=== PATIENT | male | born 1955 | race Caucasian/White ===

== ENCOUNTER 2018-12-04 10:26 | Observation (INO) | payer OTHER, SELFPAY ==
[2018-11-27 10:04] VITALS: BMI 25.7
[2018-12-04] VITALS (10 sets, daily range): BP systolic 144–164; BP diastolic 72–98; PULSE 39–59; RESP 12–16; TEMP 35.5–37.3; O2SAT 97–99; BMI 25.2; BMI 25.5
--- NOTE | 2018-12-04 10:40 | EKG12_ITS ---
Test Reason : WEAKNESS Blood Pressure : / mmHG Vent. Rate : 045 BPM Atrial Rate : 045 BPM P-R Int : 176 ms QRS Dur : 102 ms QT Int : 474 ms P-R-T Axes : -04 010 -08 degrees QTc Int : 410 ms Sinus bradycardia Septal infarct , age undetermined Abnormal ECG Confirmed by CORBY BARAHONA ([id number]), mapping editor ELLIOT YUEN ([id number]) on 12/07/2018 4:45:37 PM Referred By: GRACIELA Confirmed By:CORBY BARAHONA
--- NOTE | 2018-12-04 10:40 | CT_ITS ---
STUDY: CT BRAIN WITHOUT CONTRAST REASON FOR EXAM: Male, 63 years old. Headaches and dizziness. Weakness. RADIATION DOSAGE (If Supplied By Facility): CTDIvol = ( 44.99 ) mGy, DLP = ( 779.24 ) mGycm TECHNIQUE: Transaxial CT imaging of the brain was performed without administration of intravenous contrast material. Individualized dose optimization techniques were used for this CT. COMPARISON: Comparison is made with prior study dated April 16, 2012. FINDINGS: Normal soft tissue structures. Normal calvarium. Normal size ventricles and extra-axial spaces for the patient's age. Normal white matter tracts of the cerebral hemispheres. Normal basal ganglia and thalami. Normal brainstem. Normal cerebellum. There is no intracranial hemorrhage. There are no findings of an acute ischemic infarction. Normal visualized paranasal sinuses. CT/Brain/Head without Contrast IMPRESSION: Normal unenhanced CT scan of the brain. Electronically Signed: Vel Valenzuela, at 11:23 EDT , Service support ,
--- NOTE | 2018-12-04 10:40 | RAD_ITS ---
STUDY: X-RAY CHEST REASON FOR EXAM: Male, 63 years old. Chest pain and weakness. TECHNIQUE: Single AP portable view of the chest. COMPARISON: None. FINDINGS: EKG electrodes are seen. The lungs are clear and expanded. There is no demonstrated pleural abnormality. Normal size heart. Normal mediastinum and deo. Normal visualized pulmonary arteries. Normal visualized aortic arch and descending thoracic aorta. Normal visualized thoracic spine. Normal visualized ribs, clavicles, and shoulders. There is no demonstrated abnormality of the visualized soft tissue structures of the upper abdomen. RAD/Chest 1 View (Portable) IMPRESSION: Normal x-ray examination of the chest. Electronically Signed: Vel Valenzuela, at 11:13 EDT , Service support ,
[2018-12-04] MEDS: 0.9% Normal Saline 1,000 ML 1000 ML IV (10:59)
[2018-12-04] MEDS: proMETHazine 25 MG/ML Syringe 6.25 MG IV (10:59)
[2018-12-04 11:04] LABS: Absolute Lymphocyte Count 1.83 X10^3/ul (0.83-4.51); Absolute Neutrophil Count 5.9 X10^3/uL (2.0-7.7); Basophil# 0.03 X10^3/uL; Basophil% 0.4 % (0-1); Eosinophil# 0.13 X10^3/uL; Eosinophils% 1.5 % (0-5); Hemoglobin 16.1 g/dl (13.0-16.5); Lymphocyte # 1.83 X10^3/ul (4.0); Lymphocyte % 21.5 % (19-41); Mean Corp Hgb Conc 34.3 g/gl (32-36); Mean Corpuscular Volume 90.6 fL (80-94); Mean Platelet Vol. 10.3 fl (6.2-12.0); Monocyte# 0.54 X10^3/uL; Monocyte% 6.4 % (0-10); Neutrophil # 5.94 X10^3/uL (2.7-7.7); Neutrophil % 69.8 % (47-70); Platelet Count 201 K/mm3 (150-450); RBC Distribution Width CV 13.1 % (11.6-14.6); RBC Distribution Width SD 43.4 fl (35.1-43.9); Red Blood Count 5.19 M/mm3 (4.6-6.2); White Blood Count 8.5 K/mm3 (4.4-11.0)
[2018-12-04 11:05] LABS: POSITIVE COUNT NO; POSITIVE DIFFERENTIAL NO; POSITIVE MORPHOLOGY NO
[2018-12-04 11:18] LABS: Anion Gap 6 (5-15); BUN 29 mg/dL (7-18); BUN/Creat Ratio 30.2 RATIO (10-20); Calcium,Total 8.9 mg/dL (8.5-10.1); Chloride 106 mmol/L (98-107); Creatinine, Serum 0.96 mg/dL (0.70-1.30); EST Glomerular Filtration Rate 84 mL/min (>60); Est Glom Filt Rate - Afr Amer 101 mL/min (>60); Estimated Creatinine Clearance 71.07 ml/min; Glucose 141 mg/dL (74-106); Potassium 3.9 mmol/L (3.5-5.1); Sodium Level 142 mmol/L (136-145)
--- NOTE | 2018-12-04 11:50 | ED.VIS.GEN ---
History of Present Illness Chief Complaint: Fatigue Informant: Patient, Family Onset: Today Context: Sudden Onset Timing: Waxes and wanes Narrative: 63-year-old male with no past medical history, on no medications, presents with fairly sudden onset lightheadedness, nausea, and vomiting. He was in the shower and felt very lightheaded, vomited, and had difficulty standing up. He had to hold onto the wall because he felt like he was going to pass out but also had a slight amount of vertiginous type symptoms. This has happened to him multiple times in the past and he states that at one point he was hospitalized for 5 days. For diagnostic workup but no conclusive cause was discovered. He denies any cardiac history. He does not take any supplements or medications of any type. He is fairly active and has never had limitation of physical activity. He has no associated chest pain but did have slight diaphoresis. No associated shortness of breath. . Past Medical History - Allergies and Home Meds Allergies/Adverse Reactions: Allergies No Known Allergies Allergy (Verified 12/04/18 10:26) Primary Care Physician: Willy Bravo MD [Primary Care Provider] - Prior records reviewed: Yes Past Medical History: None Surgical History: no surgical history Smoking Status: Never smoker Review of Systems All systems negative except as indicated General: Reports: Sweats. Denies: Chills, Fever Eyes: Denies: Visual changes - bilaterally, Diplopia ENT: Denies: Rhinorrhea, Sore throat Cardiovascular: Reports: - - lighthdeaded. Denies: Chest pain, Palpitations Respiratory: Denies: Dyspnea, Cough, Dyspnea on exertion Gastrointestinal: Reports: Nausea, Vomiting. Denies: Abdominal pain, Diarrhea, Melena, Hematochezia Genitourinary: Denies: Dysuria, Hematuria, Frequency Musculoskeletal: Denies: Back pain, Extremity Pain Skin: Denies: Rash, Wounds Neurological: Reports: Headache. Denies: Weakness, Numbness Psych: Denies: Depression, Anxiety Hematologic: Denies: Easy bruising, Easy bleeding Physical Exam Vital Signs/Narrative: Vital Signs Temp Pulse Resp BP Pulse Ox 12/04/18 11:38 39 L 13 148/75 H 97 12/04/18 11:00 44 L 14 144/76 H 12/04/18 10:27 96 F L 53 L 14 149/98 H 98 General: Well nourished, Well developed, Acute Distress Head: Normocephalic, Atraumatic Eyes: Perrl, EOMI ENT: Moist mucous membranes, No rhinorrhea Neck: Supple, Nontender Cardiovascular: Regular rate, Regular rhythm, No murmurs Respiratory: No distress, CTA bilaterally, Chest nontender Abdomen: Soft, Nontender, Nondistended, Normal bowel sounds Back: Nontender, Normal Inspection Extremities: Nontender, No edema Skin: Normal color, No rash Neurological: Alert, Oriented x3, Cranial nerves II-XII grossly intact, Normal Strength, Normal Sensation Psychological: Normal affect, Normal Mood Diagnostic/Tx/Re-eval - Medical Decision Making He has no horizontal nystagmus. His symptoms are not reproducible with movement. Chest x-ray and CT brain are both negative. He was given IV fluids and Phenergan with minimal improvement. His symptoms are waxing and waning. He was placed on a cardiac monitor technician and his heart rate was noted to be in the mid 30s on several occasions, appearing to be sinus bradycardia. He was consistently staying in the mid 40s and he became more symptomatic when he dipped down into the 30s. To his knowledge, this has not occurred before. He requested consultation with Dr. Fang. I have paged him to discuss the case. The plan will be hospitalization to PCU. EKG interpretation-sinus bradycardia, rate 45, no QRS widening, no ST elevation, T wave inversion in lead III. Rhythm strip interpretation-sinus bradycardia 35. - Critical Care Time Critical care time (excluding procedures): 30-74 minutes, Discussing w/Patient &/or Family/Rehab Nursing Tech, Discussing w/Consultants, Arranging Admission or Transfer, Performing Direct Patient Care at Bedside ED Disposition - Plan for ED Patient: Disposition: Acute Care Hospital [facility] Diagnosis: Sinus bradycardia, Symptomatic bradycardia Referrals: Willy Bravo MD [Primary Care Provider] -
--- NOTE | 2018-12-04 11:56 | ED.DCSUM_ITS ---
History of Present Illness Chief Complaint: Fatigue Informant: Patient, Family Onset: Today Context: Sudden Onset Timing: Waxes and wanes Narrative: 63-year-old male with no past medical history, on no medications, presents with fairly sudden onset lightheadedness, nausea, and vomiting. He was in the shower and felt very lightheaded, vomited, and had difficulty standing up. He had to hold onto the wall because he felt like he was going to pass out but also had a slight amount of vertiginous type symptoms. This has happened to him multiple times in the past and he states that at one point he was hospitalized for 5 days. For diagnostic workup but no conclusive cause was discovered. He denies any cardiac history. He does not take any supplements or medications of any type. He is fairly active and has never had limitation of physical activity. He has no associated chest pain but did have slight diaphoresis. No associated shortness of breath. . Past Medical History - Allergies and Home Meds Allergies/Adverse Reactions: Allergies No Known Allergies Allergy (Verified 12/04/18 10:26) Primary Care Physician: Willy Bravo MD [Primary Care Provider] - Prior records reviewed: Yes Past Medical History: None Surgical History: no surgical history Smoking Status: Never smoker Review of Systems All systems negative except as indicated General: Reports: Sweats. Denies: Chills, Fever Eyes: Denies: Visual changes - bilaterally, Diplopia ENT: Denies: Rhinorrhea, Sore throat Cardiovascular: Reports: - - lighthdeaded. Denies: Chest pain, Palpitations Respiratory: Denies: Dyspnea, Cough, Dyspnea on exertion Gastrointestinal: Reports: Nausea, Vomiting. Denies: Abdominal pain, Diarrhea, Melena, Hematochezia Genitourinary: Denies: Dysuria, Hematuria, Frequency Musculoskeletal: Denies: Back pain, Extremity Pain Skin: Denies: Rash, Wounds Neurological: Reports: Headache. Denies: Weakness, Numbness Psych: Denies: Depression, Anxiety Hematologic: Denies: Easy bruising, Easy bleeding Physical Exam Vital Signs/Narrative: Vital Signs Temp Pulse Resp BP Pulse Ox 12/04/18 11:38 39 L 13 148/75 H 97 12/04/18 11:00 44 L 14 144/76 H 12/04/18 10:27 96 F L 53 L 14 149/98 H 98 General: Well nourished, Well developed, Acute Distress Head: Normocephalic, Atraumatic Eyes: Perrl, EOMI ENT: Moist mucous membranes, No rhinorrhea Neck: Supple, Nontender Cardiovascular: Regular rate, Regular rhythm, No murmurs Respiratory: No distress, CTA bilaterally, Chest nontender Abdomen: Soft, Nontender, Nondistended, Normal bowel sounds Back: Nontender, Normal Inspection Extremities: Nontender, No edema Skin: Normal color, No rash Neurological: Alert, Oriented x3, Cranial nerves II-XII grossly intact, Normal Strength, Normal Sensation Psychological: Normal affect, Normal Mood Diagnostic/Tx/Re-eval - Medical Decision Making He has no horizontal nystagmus. His symptoms are not reproducible with movement. Chest x-ray and CT brain are both negative. He was given IV fluids and Phenergan with minimal improvement. His symptoms are waxing and waning. He was placed on a field radio operator and his heart rate was noted to be in the mid 30s on several occasions, appearing to be sinus bradycardia. He was consistently staying in the mid 40s and he became more symptomatic when he dipped down into the 30s. To his knowledge, this has not occurred before. He requested consultation with Dr. Fang. I have paged him to discuss the case. The plan will be hospitalization to PCU. EKG interpretation-sinus bradycardia, rate 45, no QRS widening, no ST elevation, T wave inversion in lead III. Rhythm strip interpretation-sinus bradycardia 35. - Critical Care Time Critical care time (excluding procedures): 30-74 minutes, Discussing w/Patient &/or Family/Call Center Receptionist, Discussing w/Consultants, Arranging Admission or Transfer, Performing Direct Patient Care at Bedside ED Disposition - Plan for ED Patient: Disposition: Acute Care Hospital [facility] Diagnosis: Sinus bradycardia, Symptomatic bradycardia Referrals: Willy Bravo MD [Primary Care Provider] -
--- NOTE | 2018-12-04 13:31 | MRI_ITS ---
STUDY: MRI BRAIN WITHOUT CONTRAST REASON FOR EXAM: Male, 63 years old. Dizziness and weakness today TECHNIQUE: Standardized multiplanar fat and water weighted pulse sequences were obtained. COMPARISON: CT brain December 04, 2018 and MR brain April 16, 2012 FINDINGS: There is mild cerebral atrophy with widening of the extra-axial spaces and ventricular dilatation. There are a limited number of small white matter hyperintensities, distributed throughout the deep white matter tracts of the cerebral hemispheres, consistent with mild chronic white matter ischemic changes. There is no evidence for recent intracranial ischemia or other cause of cytotoxic edema on diffusion weighted imaging (DWI). Normal bilateral basal ganglia. Normal thalami. There is no extra-axial fluid accumulation. Normal flow voids within the major intracranial circulation suggesting patency by spin echo criteria. Normal sella turcica, pituitary gland, infundibular stalk, optic chiasm and hypothalamus. Normal tectal plate and pineal gland. Normal midbrain, mignon and medulla. Normal cerebellum. Normal basal cisterns. Normal bilateral temporal bones. Normal bilateral internal auditory canals. No demonstrated orbital abnormality, within the constraints of a routine brain study. Normal visualized paranasal sinuses. Normal calvarium and skull base. Normal visualized soft tissue structures. Normal visualized upper cervical spine. MRI/Brain without Contrast IMPRESSION: Normal unenhanced MRI of the brain. Electronically Signed: Hamilton Bunn MD at 23:59 EDT , Service support ,
--- NOTE | 2018-12-04 13:31 | MRI_ITS ---
STUDY: MRA NECK WITH AND WITHOUT CONTRAST REASON FOR EXAM: Male, 63 years old. Vertigo TECHNIQUE: 3-D hyph-rn-wlhvnh (TOF) imaging was performed in an 1.5 T MRI scanner. 15 IV Dotarem was administered for the contrast enhanced images. COMPARISON: None. FINDINGS: RIGHT CAROTID ARTERIES: Normal right common carotid artery (CCA). Normal right common carotid bulb. Normal origin of the right internal carotid (ICA) artery without a hemodynamically significant stenosis. Normal visualized cervical portion of the right internal carotid artery. Normal origin of the right external carotid artery (ECA). LEFT CAROTID ARTERIES: Normal left common carotid artery (CCA). Normal left common carotid bulb. Normal origin of the left internal carotid (ICA) artery without a hemodynamically significant stenosis. Normal visualized cervical portion of the left internal carotid artery. Normal origin of the left external carotid artery (ECA). VERTEBRAL ARTERIES: Normal antegrade flow within the bilateral vertebral artery without a hemodynamically significant stenosis. MRI/MRA Neck WITH and W/O Contrast IMPRESSION: Normal bilateral cervical carotid and vertebral arteries. Electronically Signed: Rudy Viera, at 8:08 EDT Tel , Service support ,
--- NOTE | 2018-12-04 13:31 | ECHOD_ITS ---
Version 2 Reason For Study: Bradycardia Procedure This was a 2D Doppler, Color Flow transthoracic echocardiogram. The exam was of adequate technical quality. Exam performed portable in patient room. Left Ventricle Normal LV size. Left ventricular systolic function is normal. The estimated ejection fraction is 65 %. No evidence for diastolic dysfunction. No regional wall motion abnormalities noted. Right Ventricle Normal RV size. Normal systolic function. Atria Normal left atrium. Normal right atrium. No doppler evidence for ASD. Mitral Valve There is no mitral annular calcification. Equivocal mitral valve prolapse. Trivial mitral valve insufficiency. Tricuspid Valve Normal tricuspid valve. Trivial tricuspid valve insufficiency. Right ventricular systolic pressure estimated to be 26 mmHg. Aortic Valve Trisinus/trileaflet aortic valve. Normal aortic valve. Trivial aortic valve insufficiency. Pulmonic Valve The pulmonic valve is not well visualized. Trivial pulmonic valve insufficiency. Great Vessels Normal sized aortic root. Pericardium/Pleural No pericardial effusion. MMode/2D Measurements & Calculations LVIDd: 4.5 cm IVSd: 1.3 cm Ao root diam: 3.8 cm LVIDs: 2.7 cm LVPWd: 0.82 cm LA dimension: 3.5 cm RVDd: 3.9 cm FS: 39.5 % LAV(MOD-bp): 49.6 ml LA A4 area: 16.8 cm2 RA A4 area: 17.3 cm2 LAV(MOD-bp) Indexed: 27.3 ml/m2 LAV(MOD-sp2): 54.0 ml LAV(MOD-sp4): 43.1 ml Time Measurements MV dec time: 0.24 sec Doppler Measurements & Calculations MV E max anthony: 76.8 cm/sec Lat Peak E' Anthony: 13.4 cm/sec Med Peak E' Anthony: 7.7 cm/sec MV A max anthony: 95.9 cm/sec E/E' lat: 5.7 E/E' med: 10.0 MV E/A: 0.80 MV V2 max: 92.5 cm/sec MV P1/2t max anthony: 80.9 cm/sec Ao V2 max: 115.4 cm/sec MV max P.4 mmHg MV P1/2t: 64.3 msec Ao max P.3 mmHg MV V2 mean: 42.2 cm/sec MV dec slope: 368.4 cm/sec2 Ao V2 mean: 71.8 cm/sec MV mean P.86 mmHg MVA(P1/2t): 3.4 cm2 Ao mean P.4 mmHg MV V2 VTI: 30.3 cm Ao V2 VTI: 25.4 cm LV V1 max: 111.8 cm/sec PA V2 max: 103.0 cm/sec TR max anthony: 237.3 cm/sec LV V1 max P.0 mmHg TR max P.5 mmHg LV V1 mean P.1 mmHg LV V1 mean: 66.0 cm/sec LV V1 VTI: 26.8 cm Interpretation Summary Left ventricular systolic function is normal. The estimated ejection fraction is 65 %. Equivocal mitral valve prolapse. Trivial mitral valve insufficiency. Trivial tricuspid valve insufficiency. Trivial aortic valve insufficiency. Trivial pulmonic valve insufficiency. Right ventricular systolic pressure estimated to be 26 mmHg. No evidence for diastolic dysfunction. Ordering Physician: Frankie Cuellar Performed By: Mike Shen RCS
--- NOTE | 2018-12-04 13:31 | MRI_ITS ---
STUDY: MRA OF THE HEAD WITHOUT CONTRAST REASON FOR EXAM: Male, 63 years old. Dizziness TECHNIQUE: 3-D jico-ca-xrcecw (TOF) imaging was performed with MIPs. The study was performed unenhanced. COMPARISON: CT brain December 04, 2018 and MR a brain April 16, 2012 FINDINGS: Normal bilateral petrous carotid arteries. Normal right cavernous carotid artery with a normal supraclinoid bifurcation. Normal left cavernous carotid artery with a normal supraclinoid bifurcation. Normal right A1 segments of the anterior cerebral artery. Normal left A1 segments of the anterior cerebral artery. Normal intact anterior communicating artery (ACOM). Normal bilateral A2 segments of the anterior cerebral arteries. Normal right M1 and M2 segments of the middle cerebral arteries, with a normal M1 bifurcation. Normal left M1 and M2 segments of the middle cerebral arteries, with a normal M1 bifurcation. There is a persistent origin of the right posterior cerebral artery with absence of the P1 segment of the right posterior cerebral artery. There is a persistent origin of the left posterior cerebral artery with absence of the P1 segment of the left posterior cerebral artery. Normal bilateral vertebral arteries. Normal basilar artery with a normal basilar bifurcation. The visualized bilateral superior cerebellar (SCA) arteries are normal. Normal bilateral P1, P2 and visualized P3 segments of the posterior cerebral arteries. There is no demonstrated aneurysm of the [place] of [place]. There is no major vessel occlusion or hemodynamically significant stenosis. There is no demonstrated abnormality of the visualized brain. MRI/MRA Head ONLY without Contrast IMPRESSION: Normal MRA of the head Electronically Signed: Hamilton Bunn MD at 23:45 EDT , Service support ,
--- NOTE | 2018-12-04 15:24 | HP.PCM_ITS ---
Problem List (1) Sinus bradycardia Status: Acute (2) Symptomatic bradycardia Status: Acute (3) Pharyngitis, acute Status: Resolved Qualifiers: Pharyngitis/tonsillitis etiology: unspecified etiology Qualified Code(s): J02.9 - Acute pharyngitis, unspecified (4) GERD (gastroesophageal reflux disease) Status: Chronic History of Present Illness Date of Admission: 12/04/18 Chief Complaint: Dizziness, nausea, bradycardia. The patient is a 63 year old M who presents to the emergency room due to dizziness, nausea. He reports he had a mild dizziness approximately 20 minutes before getting in the shower this morning. He states while he was in the shower he had sudden onset of severe dizziness where he had to hold onto the side of the shower due to feeling like he was going to fall down. He reports associated nausea and diaphoresis. He denies chest pain, shortness of breath, unilateral weakness or other neurologic symptoms. He does report dizziness is worse when turning his head or bending over. He reports he had dental work done yesterday. He was noted to have bradycardia 30-40s in ER. He denies syncope. Denies other associated complaints. He has no prior medical history. He takes Protonix daily for acid reflux. Otherwise no daily medications. He reports he went to urgent care approximately 5 days ago for upper respiratory infection/sore throat and was treated with Augmentin which he is currently still taking. Denies adverse side effects. Past Medical History Past Medical History (Chronic Problems): Chronic Problems (Last Reviewed 11/27/18 @ 09:52 by Terri Rausch) GERD (gastroesophageal reflux disease) (Chronic) Allergies No Known Allergies Allergy (Verified 12/04/18 10:26) Home Medications: Ambulatory Orders Medication Instructions Recorded pantoprazole 20 mg tablet,delayed 40 mg PO DAILY MDD Reflux 08/02/18 release Augmentin 875-125 Tablet 1 tab PO BID 12/04/18 Surgical History: no surgical history Psychiatric History: No pertinent psych hx Lives: Spouse/ Significant Other Smoking Status: Never smoker Alcohol: Occasional Drugs: None - *Family History Maternal History Items: - - at age 61 due to heart disease/cardiomyopathy Paternal History Items: - - due to lung and esophageal cancer. Review of Systems Constitutional: Denies: Chills, Fever, Weight Change HEENT: Denies: Head Aches, Sinus Congestion, Sinus Drainage Cardiovascular: Reports: Light Headedness. Denies: Chest Pain, Palpitations Respiratory: Denies: Cough, Shortness of breath at rest, Sputum production Gastrointestinal: Reports: Nausea. Denies: Abdominal Pain, Vomiting Genitourinary: Denies: Dysuria Musculoskeletal: Denies: Joint Pain, Joint Tenderness Skin: Denies: Rash, Wounds Neurological: Reports: - - Dizziness.. Denies: Balance problems, Blurred vision, Change in Speech, Slurred speech, Confusion, Focal weakness, Numbness, Tingling, Seizures Psychiatric: Denies: Anxiety, Depression, Homicidal Ideations, Suicidal Ideations Hematologic/ Lymphatic: Denies: Easy Bruising, Easy Bleeding VTE Information - Inpt Only VTE Present on Admission: No VTE Mechan Device Prophylaxis: None VTE Pharm Prophylaxis ordered?: Yes - Physical Exam General: Alert, Oriented x3, Cooperative HEENT: Atraumatic, PERRLA, EOMI, Normocephalic Neck: Supple, No JVD, Negative Carotid Bruits Lungs: Clear to auscultation, Normal air movement Cardiovascular: Regular Rhythm, Normal S1, Normal S2, No murmurs, Bradycardic Abdomen: Bowel Sounds Present, Soft, Non Tender, Non-Distended Extremities: No clubbing, No cyanosis, No edema, Capillary Refill Less than 3 Seconds Skin: No rashes, No breakdown Musculoskeletal: No Tenderness to Palpation of Joints or Extremities Neurological: Cranial nerves II-XII grossly intact, Neuro grossly intact Psych/Mental Status: Normal Affect, Appropriate Vital Signs Temp Pulse Resp BP Pulse Ox 97.6 F L 43 L 16 145/74 H 99 12/04/18 13:45 12/04/18 13:48 12/04/18 13:45 12/04/18 13:45 12/04/18 14:00 Oxygen Delivery Method Room Air Weight: 158 lb 4.67 oz Body Mass Index (BMI) 25.5 Laboratory Tests Past 24 Hrs 12/04/18 12/04/18 12/04/18 10:10 10:10 13:55 WBC 8.5 RBC 5.19 Hgb 16.1 Hct 47.0 MCV 90.6 MCH 31.0 MCHC 34.3 RDW 13.1 RDW Differential 43.4 Plt Count 201 MPV 10.3 Immature Gran % (Auto) 0.400 Neut % (Auto) 69.8 Lymph % (Auto) 21.5 Phelps % (Auto) 6.4 Eos % (Auto) 1.5 Baso % (Auto) 0.4 Absolute Neuts (auto) 5.9 Absolute Lymphs (auto) 1.83 Total Counted Not Reportable Sodium 142 Potassium 3.9 Chloride 106 Carbon Dioxide 30.0 Anion Gap 6 BUN 29 H Creatinine 0.96 Estim Creat Clear Calc 71.07 Est GFR (MDRD) Af Amer 101 Est GFR (MDRD) Non-Af 84 BUN/Creatinine Ratio 30.2 H Glucose 141 H Calcium 8.9 Troponin I 0.035 0.028 Assessment/Plan All Active Problems (Last Reviewed 11/27/18 @ 09:52 by Terri Rausch) Sinus bradycardia (Acute) Symptomatic bradycardia (Acute) Pharyngitis, acute (Resolved) 1. Dizziness, nausea- sudden onset. Dizziness worse with head movement. Suspicious for BPPV however given bradycardia, rule out other etiology. MRI brain, MRA head/neck. Echocardiogram ordered. Trend enzymes. Cardiology consulted. 2. Sinus bradycardia- not on rate control medications. Cardiology consulted. Monitor telemetry. 3. GERD- continue PPI. DVT prophylaxis- not indicated, low risk. This patient was seen by YESSENIA Figueroa under the supervision of Dr. Cuellar.
[2018-12-04] MEDS: Acetaminophen 325 MG Tablet 650 MG PO (16:37)
--- NOTE | 2018-12-04 16:57 | PCM.CONS.C ---
Problem List (1) Sinus bradycardia Status: Chronic (2) Dizziness Status: Acute (3) GERD (gastroesophageal reflux disease) Status: Chronic Reason for Consult Date of Consultation: 12/04/18 History of Present Illness: The patient is a 63 year old white male with a past medical history of sinus bradycardia and vertigo who was referred for evaluation of ongoing sinus bradycardia as well as dizziness associated with nausea, emesis, and weakness, superimposed upon a history of GERD. The patient has been relatively healthy and active. He is an avid runner and states that earlier this week he ran the equivalent of a 5K without any obvious difficulties. He notes that he has recently been undergoing evaluation care for some form of pharyngitis for which he was taking Augmentin therapy. He states he has been on Augmentin in the past without any obvious issues. He notes yesterday he was cared for by his dentist for performing a crown procedure. He states a special drill was used which was noted to vibrate his entire head where he had to hang onto the dental chair . However, he states he was feeling fine later yesterday. This morning he had his usual breakfast. Upon being in the shower he felt abruptly dizzy and over time became nauseated, had emesis, and was very weak. He states he felt somewhat like he was experiencing an element of vertigo but not to the degree that he had experienced 8 years ago. He called his who returned home. She stated he appeared pale. He was brought to the emergency department for further evaluation. In the emergency department he was evaluated from a cardiac standpoint with cardiac enzymes which were negative. An ECG demonstrated sinus bradycardia with a septal [place] pattern of indeterminate age cannot be excluded. A chest x-ray suggested no acute cardiopulmonary disease process. A brain CT scan was also performed which suggested no acute TELESALES REPRESENTATIVE event. He noted that he was feeling better but had not yet returned to normal. He states with his recent physical activity and running he has had no chest discomfort or difficulty breathing. There has been no episodes of palpitations. He has complained of no syncopal events. He has had an episode in 2011 as noted above with concerns of his findings of sinus bradycardia as well as vertigo. He has been evaluated for this in the past in 2012 with a transthoracic echocardiogram. He states he subsequently had an exercise tolerance test/imaging study performed as well. He notes this was negative and he required no further evaluation with diagnostic cardiac catheterization. He notes he had another episode following a cruise after which she wore a scopolamine patch. He noted after taking the patch off he had concerns of lightheadedness and dizziness. At that time he was evaluated at [facility] in [place], [place]. To the best of his knowledge he may have been diagnosed with either the side effects of the scopolamine patch or potentially M?ni?re's disease. He states he does have tinnitus. He has been evaluated by ENT. He knows there is been discussions about M?ni?re's disease. However he states he is not sure there is been a definitive diagnosis and he has never been treated medically for such. Past Medical History Allergies/Adverse Reactions: Allergies No Known Allergies Allergy (Verified 12/04/18 10:26) Home Medications: Ambulatory Orders Medication Instructions Recorded pantoprazole 20 mg tablet,delayed 40 mg PO DAILY MDD Reflux 08/02/18 release Augmentin 875-125 Tablet 1 tab PO BID 12/04/18 Past Medical History (Chronic Problems): Chronic Problems (Last Reviewed 11/27/18 @ 09:52 by Terri Rausch) Sinus bradycardia (Chronic) GERD (gastroesophageal reflux disease) (Chronic) Surgical History: no surgical history Psychiatric History: No pertinent psych hx - *Family History Maternal History Items: - - at age 61 due to heart disease/cardiomyopathy Paternal History Items: - - due to lung and esophageal cancer. Lives: Spouse/ Significant Other Smoking Status: Never smoker Alcohol: Occasional Drugs: None Review of Systems - Review of Systems General: Reports: Weakness. Denies: Fever, Fatigue, Night Sweats HEENT: Reports: Head Aches Cardiovascular: Reports: Dizziness. Denies: Chest Discomfort, Shortness of Breath, Orthopnea, PND, Peripheral Edema, Palpitations, Lightheadedness, Near Syncope, Syncope Respiratory: Denies: Cough, Sputum Production, Hemoptysis Gastrointestinal: Reports: Nausea, Emesis. Denies: Hematemesis, Hematochezia, Melena Genitourinary: Denies: Dysuria, Hematuria Skin: Denies: Rash Subjectve: This is a 63-year-old white male who appears to be resting comfortably at the moment in no acute distress. Objective: Vital Signs Temp Pulse Resp BP Pulse Ox 97.6 F L 43 L 16 145/74 H 99 12/04/18 13:45 12/04/18 13:48 12/04/18 13:45 12/04/18 13:45 12/04/18 14:00 Oxygen Delivery Method Room Air Weight: 158 lb 4.67 oz Body Mass Index (BMI) 25.5 General: Awake, Alert, Oriented x 3, Cooperative, No Acute Distress HEENT: Atraumatic, Normocephalic, PERRL, EOMI, Sclera Non Icteric Oral: Moist Mucosa Neck: Supple, Good ROM, No JVD Lungs: Clear to auscultation Cardiovascular: Regular Rhythm, Normal S1, Normal S2 Vascular: No Carotid Bruits Abdomen: Bowel Sounds Present, Soft, Non Tender Extremities: No Cyanosis, No Clubbing, No edema Neurological: No Focal Motor or Sensory Deficit Psych/Mental Status: Appropriate 12/04/18 10:10: WBC 8.5, RBC 5.19, Hgb 16.1, Hct 47.0, MCV 90.6, MCH 31.0, MCHC 34.3, RDW 13.1, RDW Differential 43.4, Plt Count 201, MPV 10.3, Immature Gran % (Auto) 0.400, Neut % (Auto) 69.8, Lymph % (Auto) 21.5, [place] % (Auto) 6.4, Eos % (Auto) 1.5, Baso % (Auto) 0.4, Absolute Neuts (auto) 5.9, Total Counted Not Reportable 12/04/18 10:10: Sodium 142, Potassium 3.9, Chloride 106, Carbon Dioxide 30.0, Anion Gap 6, BUN 29 H, Creatinine 0.96, Est GFR (MDRD) Af Amer 101, Est GFR (MDRD) Non-Af 84, BUN/Creatinine Ratio 30.2 H, Glucose 141 H, Calcium 8.9, Troponin I 0.035 12/04/18 13:55: Troponin I 0.028 12/04/18 16:10: Troponin I 0.034 Rhythm: Sinus rhythm/sinus bradycardia EKG: As noted above ECHO: Left ventricular systolic function normal The estimated LVEF is 65% Equivocal mitral valve prolapse Trivial MR Trivial TR Trivial aortic valve insufficiency Trivial [place] Estimated RV systolic pressure 26 mmHg No evidence for diastolic dysfunction Stress Test: Stress echocardiogram: 04/17/2012 1. Excellent exercise tolerance achieving a workload of 11 METs next 2. Normal chronotropic response to exercise 3. No chest discomfort or inordinate dyspnea elicited with stress 4. No arrhythmias or ST changes to suggest ischemia elicited with stress 5. No regional wall motion abnormalities to suggest ischemia elicited with stress CXR: As noted above Assessment/Plan 1. Sinus bradycardia The patient has a history of sinus bradycardia. It is unclear as to whether or not his sinus bradycardia is related to his symptoms this day. He has been evaluated for sinus bradycardia in the past and somewhat similar type symptoms. There is been no definitive correlation between his underlying rate and rhythm and his symptoms in the past or present. At the present time he will continue to be monitored as he undergoes evaluation. From a cardiac standpoint this will be to monitor his cardiac rate and rhythm, complete his cardiac enzyme profile for any obvious changes or concerns or require further evaluation or care, and follow his ECG pattern. He is already had further noninvasive evaluation this day with a transthoracic echocardiogram. The results are as noted above. He is previously undergone evaluation with a stress echocardiogram as well. He has never required invasive evaluation. He has never required electrophysiology evaluation. He should be considered for further noncardiac evaluation of his symptoms as well. 2. Dizziness The patient has had dizziness. Again he has had similar type episodes in the past. There may be some form of vertigo component to it. It is unclear whether this event is related to his cardiac rate or rhythm as this is a chronic cardiac rate and rhythm for MS in the post to an acute change. If he has no other definitive cardiovascular findings to explain his events and perhaps he needs to be considered for further noncardiac evaluation. This could be further evaluation of his peripheral vasculature with respect to his carotid arteries and TELESALES REPRESENTATIVE vessels. There is been a concern in the past of tinnitus and M?ni?re's disease. Thus it raises a question as to whether or not that may be involved with his ongoing issues. He has been evaluated by neurology and ENT in the past. He may need to be reassessed by them as well. It is unclear whether his dental appointment yesterday has any impact on his symptoms of today. 3. GERD He does have a history of GERD. He will continue medical therapy as deemed appropriate. Comment: The patient's case has been discussed and reviewed with the patient, his spouse, the [facility] emergency department staff and Dr. Cuellar. This note was generated with [employer] software. It may contain incorrect words, spelling, and punctuation that were not noted in checking the note before signing.
--- NOTE | 2018-12-04 17:02 | CON.PCM_ITS ---
Problem List (1) Sinus bradycardia Status: Chronic (2) Dizziness Status: Acute (3) GERD (gastroesophageal reflux disease) Status: Chronic Reason for Consult Date of Consultation: 12/04/18 History of Present Illness: The patient is a 63 year old white male with a past medical history of sinus bradycardia and vertigo who was referred for evaluation of ongoing sinus erika ycardia as well as dizziness associated with nausea, emesis, and weakness, superimposed upon a history of GERD. The patient has been relatively healthy and active. He is an avid runner and states that earlier this week he ran the equivalent of a 5K without any obvious difficulties. He notes that he has recently been undergoing evaluation care for some form of pharyngitis for which he was taking Augmentin therapy. He states he has been on Augmentin in the past without any obvious issues. He notes yesterday he was cared for by his dentist for performing a crown procedure. He states a special drill was used which was noted to vibrate his entire head where he had to hang onto the dental chair . However, he states he was feeling fine later yesterday. This morning he had his usual breakfast. Upon being in the shower he felt abruptly dizzy and over time became nauseated, had emesis, and was very weak. He states he felt somewhat like he was experiencing an element of vertigo but not to the degree that he had experienced 8 years ago. He called his who returned home. She stated he appeared pale. He was brought to the emergency department for further evaluation. In the emergency department he was evaluated from a cardiac standpoint with cardiac enzymes which were negative. An ECG demonstrated sinus bradycardia with a septal [place] pattern of indeterminate age cannot be excluded. A chest x-ray suggested no acute cardiopulmonary disease process. A brain CT scan was also performed which suggested no acute PRIMING MACHINE OPERATOR event. He noted that he was feeling better but had not yet returned to normal. He states with his recent physical activity and running he has had no chest discomfort or difficulty breathing. There has been no episodes of palpitations. He has complained of no syncopal events. He has had an episode in 2011 as noted above with concerns of his findings of sinus bradycardia as well as vertigo. He has been evaluated for this in the past in 2012 with a transthoracic echocardiogram. He states he subsequently had an exercise tolerance test/imaging study performed as well. He notes this was negative and he required no further evaluation with diagnostic cardiac catheterization. He notes he had another episode following a cruise after which she wore a scopolamine patch. He noted after taking the patch off he had concerns of lightheadedness and dizziness. At that time he was evaluated at [facility] in [place], [place]. To the best of his knowledge he may have been diagnosed with either the side effects of the scopolamine patch or potentially M?ni?re's disease. He states he does have tinnitus. He has been evaluated by ENT. He knows there is been discussions about M?ni?re's disease. However he states he is not sure there is been a definitive diagnosis and he has never been treated medically for such. Past Medical History Allergies/Adverse Reactions: Allergies No Known Allergies Allergy (Verified 12/04/18 10:26) Home Medications: Ambulatory Orders Medication Instructions Recorded pantoprazole 20 mg tablet,delayed 40 mg PO DAILY MDD Reflux 08/02/18 release Augmentin 875-125 Tablet 1 tab PO BID 12/04/18 Past Medical History (Chronic Problems): Chronic Problems (Last Reviewed 11/27/18 @ 09:52 by Terri Rausch) Sinus bradycardia (Chronic) GERD (gastroesophageal reflux disease) (Chronic) Surgical History: no surgical history Psychiatric History: No pertinent psych hx - *Family History Maternal History Items: - - at age 61 due to heart disease/cardiomyopathy Paternal History Items: - - due to lung and esophageal cancer. Lives: Spouse/ Significant Other Smoking Status: Never smoker Alcohol: Occasional Drugs: None Review of Systems - Review of Systems General: Reports: Weakness. Denies: Fever, Fatigue, Night Sweats HEENT: Reports: Head Aches Cardiovascular: Reports: Dizziness. Denies: Chest Discomfort, Shortness of [place] th, Orthopnea, PND, Peripheral Edema, Palpitations, Lightheadedness, Near Syncope, Syncope Respiratory: Denies: Cough, Sputum Production, Hemoptysis Gastrointestinal: Reports: Nausea, Emesis. Denies: Hematemesis, Hematochezia, Melena Genitourinary: Denies: Dysuria, Hematuria Skin: Denies: Rash Subjectve: This is a 63-year-old white male who appears to be resting comfortably at the moment in no acute distress. Objective: Vital Signs Temp Pulse Resp BP Pulse Ox 97.6 F L 43 L 16 145/74 H 99 12/04/18 13:45 12/04/18 13:48 12/04/18 13:45 12/04/18 13:45 12/04/18 14:00 Oxygen Delivery Method Room Air Weight: 158 lb 4.67 oz Body Mass Index (BMI) 25.5 General: Awake, Alert, Oriented x 3, Cooperative, No Acute Distress HEENT: Atraumatic, Normocephalic, PERRL, EOMI, Sclera Non Icteric Oral: Moist Mucosa Neck: Supple, Good ROM, No JVD Lungs: Clear to auscultation Cardiovascular: Regular Rhythm, Normal S1, Normal S2 Vascular: No Carotid Bruits Abdomen: Bowel Sounds Present, Soft, Non Tender Extremities: No Cyanosis, No Clubbing, No edema Neurological: No Focal Motor or Sensory Deficit Psych/Mental Status: Appropriate 12/04/18 10:10: WBC 8.5, RBC 5.19, Hgb 16.1, Hct 47.0, MCV 90.6, MCH 31.0, MCHC 34.3, RDW 13.1, RDW Differential 43.4, Plt Count 201, MPV 10.3, Immature Gran % (Auto) 0.400, Neut % (Auto) 69.8, Lymph % (Auto) 21.5, [place] % (Auto) 6.4, Eos % (Auto) 1.5, Baso % (Auto) 0.4, Absolute Neuts (auto) 5.9, Total Counted Not Reportable 12/04/18 10:10: Sodium 142, Potassium 3.9, Chloride 106, Carbon Dioxide 30.0, Anion Gap 6, BUN 29 H, Creatinine 0.96, Est GFR (MDRD) Af Amer 101, Est GFR (MDRD) Non-Af 84, BUN/Creatinine Ratio 30.2 H, Glucose 141 H, Calcium 8.9, Troponin I 0.035 12/04/18 13:55: Troponin I 0.028 12/04/18 16:10: Troponin I 0.034 Rhythm: Sinus rhythm/sinus bradycardia EKG: As noted above ECHO: Left ventricular systolic function normal The estimated LVEF is 65% Equivocal mitral valve prolapse Trivial MR Trivial TR Trivial aortic valve insufficiency Trivial [place] Estimated RV systolic pressure 26 mmHg No evidence for diastolic dysfunction Stress Test: Stress echocardiogram: 04/17/2012 1. Excellent exercise tolerance achieving a workload of 11 METs next 2. Normal chronotropic response to exercise 3. No chest discomfort or inordinate dyspnea elicited with stress 4. No arrhythmias or ST changes to suggest ischemia elicited with stress 5. No regional wall motion abnormalities to suggest ischemia elicited with stress CXR: As noted above Assessment/Plan 1. Sinus bradycardia The patient has a history of sinus bradycardia. It is unclear as to whether or not his sinus bradycardia is related to his symptoms this day. He has been evaluated for sinus bradycardia in the past and somewhat similar type symptoms. There is been no definitive correlation between his underlying rate and rhythm and his symptoms in the past or present. At the present time he will continue to be monitored as he undergoes evaluation. From a cardiac standpoint this will be to monitor his cardiac rate and rhythm, complete his cardiac enzyme profile for any obvious changes or concerns or require further evaluation or care, and follow his ECG pattern. He is already had further noninvasive evaluation this day with a transthoracic echocardiogram. The results are as noted above. He is previously undergone evaluation with a stress echocardiogram as well. He has never required invasive evaluation. He has never required electrophysiology evaluation. He should be considered for further noncardiac evaluation of his symptoms as wel l. 2. Dizziness The patient has had dizziness. Again he has had similar type episodes in the past. There may be some form of vertigo component to it. It is unclear whether this event is related to his cardiac rate or rhythm as this is a chronic cardiac rate and rhythm for MS in the post to an acute change. If he has no other definitive cardiovascular findings to explain his events and perhaps he needs to be considered for further noncardiac evaluation. This could be further evaluation of his peripheral vasculature with respect to his carotid arteries and PRIMING MACHINE OPERATOR vessels. There is been a concern in the past of tinnitus and M?ni?re's disease. Thus it raises a question as to whether or not that may be involved with his ongoing issues. He has been evaluated by neurology and ENT in the past. He may need to be reassessed by them as well. It is unclear whether his dental appointment yesterday has any impact on his symptoms of today. 3. GERD He does have a history of GERD. He will continue medical therapy as deemed appropriate. Comment: The patient's case has been discussed and reviewed with the patient, his spouse, the [facility] emergency department staff and Dr. Cuellar. This note was generated with [employer] software. It may contain incorrect words, spelling, and punctuation that were not noted in checking the note before signing.
[2018-12-05 02:31] VITALS: BP 132/80; PULSE 56; RESP 10; TEMP 36.8; O2SAT 96
[2018-12-05 03:04] VITALS: PULSE 56
--- NOTE | 2018-12-05 05:00 | EKG12_ITS ---
Test Reason : AM EKG Blood Pressure : / mmHG Vent. Rate : 053 BPM Atrial Rate : 053 BPM P-R Int : 170 ms QRS Dur : 090 ms QT Int : 418 ms P-R-T Axes : 060 035 -04 degrees QTc Int : 392 ms Sinus bradycardia Septal infarct , age undetermined Abnormal ECG When compared with ECG of 04-DEC-2018 10:51, MANUAL COMPARISON REQUIRED, DATA IS UNCONFIRMED Confirmed by ROLANDO AMANDA, JACOB ([id number]), continuity editor ELLIOT YUEN ([id number]) on 12/09/2018 1:45:30 PM Referred By: LUCILLE Confirmed By:JACOB MARSHALL MD
[2018-12-05 06:41] VITALS: PULSE 60
[2018-12-05 08:31] VITALS: BP 137/72; PULSE 62; RESP 16; TEMP 36.8; O2SAT 97
[2018-12-05 08:35] VITALS: O2SAT 96
--- NOTE | 2018-12-05 08:44 | PCM.PN.CARD ---
Subjectve: Patient doing very well this morning, no chest pain, no further dizziness. Ambulated the halls without difficulty. Telemetry shows normal sinus rhythm, sinus bradycardia. No arrhythmias noted. MRI/MRA of the head and neck negative. Objective: Vital Signs Temp Pulse Resp BP Pulse Ox 98.3 F 62 16 137/72 H 96 12/05/18 08:31 12/05/18 08:31 12/05/18 08:31 12/05/18 08:31 12/05/18 08:35 Oxygen Delivery Method Room Air Weight: 158 lb 4.67 oz Body Mass Index (BMI) 25.5 Intake and Output for Last 24 Hours 12/03/18 12/04/18 12/05/18 23:59 23:59 23:59 Intake Total 470 / 470 0 / 0 Balance 470 / 470 0 / 0 General: Awake, Alert, Oriented x 3 HEENT: PERRL, EOMI, Sclera Non Icteric Neck: Supple, Good ROM, No Lymph Node Enlargement Lungs: Clear to auscultation Cardiovascular: Regular Rhythm, Normal S1, Normal S2, No Murmurs, No Rubs, No Gallops Vascular: No Carotid Bruits, Normal Femoral Pulses, Normal Radial Pulses, Normal Dorsalis Pedal Pulse, Normal Posterior Tibial Pulses Abdomen: Bowel Sounds Present, Soft, Non Tender, No HSM, No Organomegaly Extremities: No Cyanosis, No Clubbing, No edema Neurological: No Focal Motor or Sensory Deficit 12/04/18 10:10: WBC 8.5, RBC 5.19, Hgb 16.1, Hct 47.0, MCV 90.6, MCH 31.0, MCHC 34.3, RDW 13.1, RDW Differential 43.4, Plt Count 201, MPV 10.3, Immature Gran % (Auto) 0.400, Neut % (Auto) 69.8, Lymph % (Auto) 21.5, [place] % (Auto) 6.4, Eos % (Auto) 1.5, Baso % (Auto) 0.4, Absolute Neuts (auto) 5.9, Total Counted Not Reportable 12/04/18 10:10: Sodium 142, Potassium 3.9, Chloride 106, Carbon Dioxide 30.0, Anion Gap 6, BUN 29 H, Creatinine 0.96, Est GFR (MDRD) Af Amer 101, Est GFR (MDRD) Non-Af 84, BUN/Creatinine Ratio 30.2 H, Glucose 141 H, Calcium 8.9, Troponin I 0.035 12/04/18 13:55: Troponin I 0.028 12/04/18 16:10: Troponin I 0.034 Rhythm: EKG: ECHO: Stress Test: Cardiac Cath: PCI: CT Surgery: Holter monitor: EPS: PPM: CXR: Chest CT Scan: Medical Necessity - Tobacco Use Smoking Status: Never smoker Assessment/Plan 1. Vertigo: Patient may have had an otolith manipulation while he was undergoing drilling of his crown which cause significant vertigo. Patient has baseline sinus bradycardia because he is an avid athlete, and exercises by running on a daily basis. His dizziness has markedly improved since admission. His MRI/MRA of his brain is negative for any overt abnormalities. He appears to have no carotid or vertebral stenoses. I recommended the patient be prescribed meclizine at home for possible recurrent dizziness. I do not believe he would require stress test at this time as he is asymptomatic from a cardiac standpoint. His sinus bradycardia with most likely persist given his athleticism. The patient may be discharged home and follow-up with Dr. Fang going forward. 2. Thank you very much for the opportunity to participate in the cardiac care of your patient. Code Visit Inpatient E&M: [id number] Subs Hosp L2
--- NOTE | 2018-12-05 09:59 | DCINST_ITS ---
- Discharge Diagnoses Current Active Problems: Current Active and Chronic Problems (Last Reviewed 11/27/18 @ 09:52 by Terri Rausch) GERD (gastroesophageal reflux disease) (Chronic) Dizziness (Acute) You will use the following diet at home:: No restrictions Discharge Activity: Return to Normal Activity Call your doctor if you observe: Shortness of breath, Dizziness, Fainting spells, Chest pain Allergies/Adverse Reactions: Allergies No Known Allergies Allergy (Verified 12/04/18 10:26) Medications to take at Discharge pantoprazole 20 mg tablet,delayed release 40 mg PO DAILY MDD Reflux 08/02/18 Augmentin 875-125 Tablet 1 tab PO BID 12/04/18 Meclizine HCl [Antivert] 25 mg PO TID PRN PRN #20 tablet 12/05/18 The following prescriptions were given: Meclizine HCl [Antivert] 25 mg PO TID PRN PRN #20 tablet PRN Reason: Vertigo Primary Care Physician: Willy Bravo MD [Primary Care Provider] - Please follow up with your Primary Care Physician in: 1 Week Test Results: Test results from this visit will be discussed in further detail at your follow- up appointment, if applicable. Proposed Discharge Date: 12/05/18
--- NOTE | 2018-12-05 11:41 | PCM.DC.SUM ---
Discharge Date and Diagnosis Date of Admission: 12/04/18 Date of Discharge: 12/05/18 - Primary Discharge Diagnosis 1. Acute BPPV 2. Sinus bradycardia 3. GERD - Secondary Discharge Diagnosis Chronic Problems (Last Reviewed 11/27/18 @ 09:52 by Terri Rausch) Sinus bradycardia (Chronic) GERD (gastroesophageal reflux disease) (Chronic) Hospital Course and Treatment Imaging Results: Diagnostic Data Brain CT 12/04/18 10:40 IMPRESSION: Normal unenhanced CT scan of the brain. Electronically Signed: Vel Valenzuela, at 11:23 EDT , Service support , Chest X-Ray 12/04/18 10:40 IMPRESSION: Normal x-ray examination of the chest. Electronically Signed: Vel Valenzuela, at 11:13 EDT , Service support , Brain MRI 12/04/18 13:31 IMPRESSION: Normal unenhanced MRI of the brain. Electronically Signed: Hamilton Bunn MD at 23:59 EDT , Service support , Head MRA 12/04/18 13:31 IMPRESSION: Normal MRA of the head Electronically Signed: Hamilton Bunn MD at 23:45 EDT , Service support , Neck MRA 12/04/18 13:31 IMPRESSION: Normal bilateral cervical carotid and vertebral arteries. Electronically Signed: Rudy Viera, at 8:08 EDT Tel , Service support , Dr. Asencio- Cardiology Operations: None Procedures: 2-D Echocardiogram Summary of Care Provided: The patient is a 63 year old M admitted 12/04/2018 due to dizziness, nausea and bradycardia. 1. BPPV-MRI of brain, MRA of head and neck all unremarkable. Echocardiogram with EF 65%. No further dizziness. No arrhythmias on telemetry. Sinus bradycardia, sinus rhythm. Meclizine as needed at discharge for vertigo. Follow-up with primary care physician in 1 week. 2. Sinus bradycardia- cardiology consulted. Echo as noted above. Not further workup from cardiology standpoint. Mild bradycardia is baseline for patient as he is a runner and very active. 3. GERD- continue PPI. General: Alert, Oriented x3, Cooperative HEENT: Atraumatic, PERRLA, EOMI, Normocephalic Neck: Supple, No JVD, Negative Carotid Bruits Lungs: Clear to auscultation, Normal air movement Cardiovascular: Regular Rhythm, Normal S1, Normal S2, No murmurs, Bradycardic Abdomen: Bowel Sounds Present, Soft, Non Tender, Non-Distended Extremities: No clubbing, No cyanosis, No edema, Capillary Refill Less than 3 Seconds Skin: No rashes, No breakdown Musculoskeletal: No Tenderness to Palpation of Joints or Extremities Neurological: Cranial nerves II-XII grossly intact, Neuro grossly intact Psych/Mental Status: Normal Affect, Appropriate Patient seen and examined prior to discharge. Physical assessment as noted above. Patient is stable for discharge with follow up recommendations as noted above. This patient was seen by YESSENIA Figueroa under the supervision of Dr. Cuellar. - Physical Exam Vital Signs Temp Pulse Resp BP Pulse Ox 98.3 F 62 16 137/72 H 96 12/05/18 08:31 12/05/18 08:31 12/05/18 08:31 12/05/18 08:31 12/05/18 08:35 Oxygen Delivery Method Room Air Weight: 158 lb 4.67 oz Body Mass Index (BMI) 25.5 Intake and Output for Last 24 Hours 12/03/18 12/04/18 12/05/18 23:59 23:59 23:59 Intake Total 470 / 470 0 / 0 Balance 470 / 470 0 / 0 Laboratory Tests Past 24 Hrs 12/04/18 12/04/18 13:55 16:10 Troponin I 0.028 0.034 Discharge Diet: No Restrictions Discharge Activity: Return to Normal Activity Call your doctor if you observe: Shortness of breath, Dizziness, Fainting spells, Chest pain Home Medications: Medications to take at Discharge pantoprazole 20 mg tablet,delayed release 40 mg PO DAILY MDD Reflux 08/02/18 Augmentin 875-125 Tablet 1 tab PO BID 12/04/18 Meclizine HCl [Antivert] 25 mg PO TID PRN PRN #20 tablet 12/05/18 Following Prescrptions Were Given to Patient: Meclizine HCl [Antivert] 25 mg PO TID PRN PRN #20 tablet PRN Reason: Vertigo Primary Care Physician: Willy Bravo MD [Primary Care Provider] - Please follow up with your Primary Care Physician in: 1 Week Disposition: Home Minutes spent on discharge:: 35 Patient Condition:: Stable Medical Necessity - Tobacco Use Smoking Status: Never smoker Meaningful Use Info Meaningful Use Diagnoses (Choose all that apply): None applicable
--- NOTE | 2018-12-05 11:48 | DS.PCM_ITS ---
Discharge Date and Diagnosis Date of Admission: 12/04/18 Date of Discharge: 12/05/18 - Primary Discharge Diagnosis 1. Acute BPPV 2. Sinus bradycardia 3. GERD - Secondary Discharge Diagnosis Chronic Problems (Last Reviewed 11/27/18 @ 09:52 by Terri Rausch) Sinus bradycardia (Chronic) GERD (gastroesophageal reflux disease) (Chronic) Hospital Course and Treatment Imaging Results: Diagnostic Data Brain CT 12/04/18 10:40 IMPRESSION: Normal unenhanced CT scan of the brain. Electronically Signed: Vel Valenzuela, at 11:23 EDT , Service support , Chest X-Ray 12/04/18 10:40 IMPRESSION: Normal x-ray examination of the chest. Electronically Signed: Vel Valenzuela, at 11:13 EDT , Service support , Brain MRI 12/04/18 13:31 IMPRESSION: Normal unenhanced MRI of the brain. Electronically Signed: Hamilton Bunn MD at 23:59 EDT , Service support , Head MRA 12/04/18 13:31 IMPRESSION: Normal MRA of the head Electronically Signed: Hamilton Bunn MD at 23:45 EDT , Service support , Neck MRA 12/04/18 13:31 IMPRESSION: Normal bilateral cervical carotid and vertebral arteries. Electronically Signed: Rudy Viera, at 8:08 EDT Tel , Service support , Dr. Asencio- Cardiology Operations: None Procedures: 2-D Echocardiogram Summary of Care Provided: The patient is a 63 year old M admitted 12/04/2018 due to dizziness, nausea and bradycardia. 1. BPPV-MRI of brain, MRA of head and neck all unremarkable. Echocardiogram with EF 65%. No further dizziness. No arrhythmias on telemetry. Sinus bradycardia, sinus rhythm. Meclizine as needed at discharge for vertigo. Follow-up with primary care physician in 1 week. 2. Sinus bradycardia- cardiology consulted. Echo as noted above. Not further workup from cardiology standpoint. Mild bradycardia is baseline for patient as he is a runner and very active. 3. GERD- continue PPI. General: Alert, Oriented x3, Cooperative HEENT: Atraumatic, PERRLA, EOMI, Normocephalic Neck: Supple, No JVD, Negative Carotid Bruits Lungs: Clear to auscultation, Normal air movement Cardiovascular: Regular Rhythm, Normal S1, Normal S2, No murmurs, Bradycardic Abdomen: Bowel Sounds Present, Soft, Non Tender, Non-Distended Extremities: No clubbing, No cyanosis, No edema, Capillary Refill Less than 3 Seconds Skin: No rashes, No breakdown Musculoskeletal: No Tenderness to Palpation of Joints or Extremities Neurological: Cranial nerves II-XII grossly intact, Neuro grossly intact Psych/Mental Status: Normal Affect, Appropriate Patient seen and examined prior to discharge. Physical assessment as noted above. Patient is stable for discharge with follow up recommendations as noted above. This patient was seen by YESSENIA Figueroa under the supervision of Dr. Cuellar. - Physical Exam Vital Signs Temp Pulse Resp BP Pulse Ox 98.3 F 62 16 137/72 H 96 12/05/18 08:31 12/05/18 08:31 12/05/18 08:31 12/05/18 08:31 12/05/18 08:35 Oxygen Delivery Method Room Air Weight: 158 lb 4.67 oz Body Mass Index (BMI) 25.5 Intake and Output for Last 24 Hours 12/03/18 12/04/18 12/05/18 23:59 23:59 23:59 Intake Total 470 / 470 0 / 0 Balance 470 / 470 0 / 0 Laboratory Tests Past 24 Hrs 12/04/18 12/04/18 13:55 16:10 Troponin I 0.028 0.034 Discharge Diet: No Restrictions Discharge Activity: Return to Normal Activity Call your doctor if you observe: Shortness of breath, Dizziness, Fainting spells, Chest pain Home Medications: Medications to take at Discharge pantoprazole 20 mg tablet,delayed release 40 mg PO DAILY MDD Reflux 08/02/18 Augmentin 875-125 Tablet 1 tab PO BID 12/04/18 Meclizine HCl [Antivert] 25 mg PO TID PRN PRN #20 tablet 12/05/18 Following Prescrptions Were Given to Patient: Meclizine HCl [Antivert] 25 mg PO TID PRN PRN #20 tablet PRN Reason: Vertigo Primary Care Physician: Willy Bravo MD [Primary Care Provider] - Please follow up with your Primary Care Physician in: 1 Week Disposition: Home Minutes spent on discharge:: 35 Patient Condition:: Stable Medical Necessity - Tobacco Use Smoking Status: Never smoker Meaningful Use Info Meaningful Use Diagnoses (Choose all that apply): None applicable
== END 2018-12-05 09:58 | disposition home or self-care (01) ==
LOC: ED 12:06 → PCU 12:34
PROVIDERS: Admitting Provider Internal Medicine; Emergency Provider Emergency Medicine; Family Provider Family Medicine; PCP Family Medicine; Visit Provider Internal Medicine
DX: H81.10 Benign paroxysmal vertigo, unspecified ear (principal); K21.9 Gastro-esophageal reflux disease without esophagitis; R00.1 Bradycardia, unspecified; Z79.899 Other long term (current) drug therapy; J06.9 Acute upper respiratory infection, unspecified; R94.31 Abnormal electrocardiogram [ECG] [EKG]
CPT/HCPCS: 36415; 70450; 70544; 70549; 70551; 71045; 80048; 84484; 85025; 93005; 93306; 96361; 96374; 99218; 99285; A9575; Q9957; A4216; G0378

== ENCOUNTER → 2019-08-09 09:17 | Outpatient (CLI) | payer OTHER, SELFPAY ==
[2019-06-16 17:02] VITALS: BMI 25.5
[2019-08-09 12:22] LABS: PSA,Total- Diagnostic 2.16 ng/mL (0.0-4.0)
== END ==
PROVIDERS: Family Provider Family Medicine; PCP Family Medicine
DX: R97.20 Elevated prostate specific antigen [PSA] (principal)
CPT/HCPCS: 36415; 84153

== ENCOUNTER → 2020-03-13 08:33 | Outpatient (CLI) | payer OTHER, SELFPAY ==
[2019-06-16 17:02] VITALS: BMI 25.5
[2020-03-13 12:29] LABS: Anion Gap 3 (5-15); BUN 26 mg/dL (7-18); BUN/Creat Ratio 22.4 RATIO (10-20); Chloride 105 mmol/L (98-107); Cholesterol 173 mg/dL (200); Creatinine, Serum 1.16 mg/dL (0.70-1.30); EST Glomerular Filtration Rate 67 mL/min (>60); Est Glom Filt Rate - Afr Amer 81 mL/min (>60); Glucose 98 mg/dL (74-106); High Density Lipoprotein 56 mg/dL; Potassium 4.5 mmol/L (3.5-5.1); Sodium Level 138 mmol/L (136-145); Triglycerides 96 mg/dL; Very Low Density Lipoprotein 19 mg/dL (5-40)
== END ==
PROVIDERS: PCP Family Medicine; Referring Provider Family Medicine; Visit Provider Family Medicine
DX: Z13.1 Encounter for screening for diabetes mellitus (principal); Z13.220 Encounter for screening for lipoid disorders
CPT/HCPCS: 36415; 80048; 80061

== ENCOUNTER → 2020-08-16 16:02 | Outpatient (CLI) | payer MEDICARE, SELFPAY ==
[2019-06-16 17:02] VITALS: BMI 25.5
[2020-08-16 18:07] LABS: PSA,Total- Diagnostic 2.64 ng/mL (0.0-4.0)
== END ==
PROVIDERS: PCP Family Medicine
DX: R97.20 Elevated prostate specific antigen [PSA] (principal)
CPT/HCPCS: 36415; 84153

== ENCOUNTER 2020-10-31 09:42 | Outpatient (RCR) | payer MEDICARE, SELFPAY ==
[2019-06-16 17:02] VITALS: BMI 25.5
[2020-10-31] MEDS: COVID-19 VACC, MRNA(PFIZER)/PF 30 MCG/0.3 ML SYRINGE IM (17:08)
[2020-11-21] MEDS: COVID-19 VACC, MRNA(PFIZER)/PF 30 MCG/0.3 ML SYRINGE IM (16:47)
== END 2021-01-30 23:59 ==
LOC: IMMUN 09:42
PROVIDERS: PCP Family Medicine; Referring Provider Family Medicine; Visit Provider Family Medicine
DX: Z23 Encounter for immunization (principal)
CPT/HCPCS: 0001A; 0002A; 91300

== ENCOUNTER 2021-02-05 03:29 | Emergency (ER) | payer MEDICARE, SELFPAY ==
[2019-06-16 17:02] VITALS: BMI 25.5
[2021-02-05 03:30] VITALS: PULSE 57; RESP 18; TEMP 36.4; O2SAT 98; BMI 25.1
[2021-02-05 03:34] VITALS: BP 166/96
--- NOTE | 2021-02-05 03:43 | ED.VIS.DENTA ---
HPI History of Present Illness Chief Complaint: Dental Detail of Chief Complaint: Right mandibular dental pain Informant: patient and spouse/S.O. Onset/Context/Timing Onset: Yesterday Context: Gradual Onset Current Severity: Severe Maximum Severity: Severe Narrative Narrative: Patient presents secondary to right mandibular dental pain. He states his dentist has been watching this tooth for quite some time. Yesterday it became more painful and just seem to progress throughout the day. He took 2 different doses of Excedrin yesterday with no significant provement. Pain was bad enough tonight he was unable to sleep. He plans to see his dentist tomorrow. [facility] Medical History GERD (gastroesophageal reflux disease) Home Medications pantoprazole 20 mg tablet,delayed release 40 mg PO DAILY MDD Reflux 08/02/18 [History Last Taken 12/04/18 08:00 40 mg] oxycodone-acetaminophen [Percocet] 1 tab PO Q6H PRN 3 Days #10 tab 02/05/21 [Rx Last Taken Unknown] penicillin V potassium 500 mg PO 4X/DAY #40 tab 02/05/21 [Rx Last Taken Unknown] Allergy/AdvReac Type Severity Reaction Status Date / Time No Known Allergies Allergy Verified 06/16/19 17:01 Social History Smoking Status: Never smoker ROS ROS ED Constitutional Constitutional ED: Denies chills or fever(s) Eyes Eyes: Denies change in vision ENT ENT ED: Reports other Details: Right mandibular dental pain ; Denies sore throat Cardiovascular Cardiovascular: Denies chest pain Respiratory/Chest Respiratory/Chest: Denies cough or dyspnea Gastrointestinal Gastrointestinal: Denies abdominal pain, diarrhea, nausea or vomiting Genitourinary Genitourinary ED: Denies dysuria Musculoskeletal Musculoskeletal: Denies back pain Integumentary Denies rash Neurologic Neurologic: Denies headache(s) or weakness Psychiatric Psychiatric: Denies anxiety or depression Endocrine Endocrinology: Denies polydipsia or polyuria Allergic/Immunologic Allergic/Immunologic ED: Denies urticaria EXAM Physical Exam Const Vital Signs: 02/05/21 03:30 02/05/21 03:34 Temperature 97.6 F L Temperature Source Temporal Pulse Rate 57 L Respiratory Rate 18 Blood Pressure 166/96 H Blood Pressure Mean 119 Pulse Ox 98 Positive well nourished and well developed General Appearance ED: well developed HEENT Reports normocephalic and head/scalp atraumatic HEENT Narrative: No facial edema or erythema. Intraoral examination reveals focal tenderness over the right second molar. Minimal surrounding gum edema. Posterior pharynx examination is normal. No evidence of Cb's angina or trismus. Eyes PERRL and EOMs intact bilaterally Neck supple Chest Wall inspection of chest normal and palpation of chest normal Resp normal respiratory effort and clear to auscultation bilaterally Cardio regular rate and regular rhythm GI normal to inspection, nondistended, normoactive bowel sounds Palpation: soft Extremity normal to inspection Neuro oriented x3 and no sensory deficits noted Sensorium / Orientation: alert Motor Exam: strength 5/5 throughout Psych mental status grossly normal Skin no rashes or lesions noted MDM MDM MDM Narrative Medical decision making narrative: Patient is given dose of oxycodone and Pen-Vee K. Treatment and Re-Evaluation Comments:: Short prescription for Percocet along with a 10-day course of Pen-Vee K is provided. Patient plans to see his dentist later today. Discharge Plan Triage Chief Complaint: Dental ED Provider: Nicol Pillai Dx/Rx/DC Orders Clinical Impression: Odontalgia Instructions: ED Dental Pain Prescriptions: New penicillin V potassium 250 MG tablet 500 mg PO 4X/DAY Qty: 40 RF: 0 oxycodone-acetaminophen [Percocet] 5-325 mg tablet 1 tab PO Q6H PRN (Reason: pain) 3 Days Qty: 10 RF: 0 No Action pantoprazole [Protonix] 20 mg tablet,delayed release (DR/EC) 40 mg PO DAILY MDD Reflux RF: 0 Primary Care Provider: Willy Bravo Referrals: Willy Bravo MD [Primary Care Provider] - Activity Restrictions/Additional Instructions: Follow-up with your dentist as soon as possible. Disposition Disposition: Home, self care Discharge Date/Time: 02/05/21 04:21
[2021-02-05] MEDS: Penicillin Vk 250 MG Tablet 500 MG PO (03:52)
[2021-02-05] MEDS: oxyCODONE 5 MG Tablet PO (03:52)
== END 2021-02-05 04:21 | disposition home or self-care (01) ==
LOC: ED 04:02
PROVIDERS: Emergency Provider Emergency Medicine; PCP Family Medicine
DX: K08.89 Other specified disorders of teeth and supporting structures (principal); K21.9 Gastro-esophageal reflux disease without esophagitis; Z79.899 Other long term (current) drug therapy
CPT/HCPCS: 99283

== ENCOUNTER 2021-04-29 23:17 | Emergency (ER) | payer MEDICARE, SELFPAY ==
[2021-04-29 23:18] VITALS: BP 176/75; PULSE 57; RESP 16; TEMP 36.6; O2SAT 97; BMI 24.9
[2021-04-30] MEDS: 0.9% Normal Saline 1,000 ML 1000 ML IV (00:19)
[2021-04-30] MEDS: Ondansetron 4 MG/2 ML Vial IV (00:20)
[2021-04-30] MEDS: Ketorolac 30 MG/ML Syringe IV (00:20)
[2021-04-30] MEDS: Morphine 4 MG/ML Syringe IV (00:22)
--- NOTE | 2021-04-30 00:25 | CT_ITS ---
STUDY: CT ABDOMEN AND PELVIS WITHOUT CONTRAST REASON FOR EXAM: Male, 66 years old. Flank pain RADIATION DOSAGE (If Supplied By Facility): CTDIvol = ( 6.87 ) mGy, DLP = ( 375.71 ) mGycm TECHNIQUE: Transaxial images were obtained from the dome of the diaphragm to the symphysis pubis without oral contrast, and without intravenous contrast. Sagittal and coronal images were reconstructed. This examination is limited for the evaluation of gastrointestinal, solid organs and vascular structures due to the lack of intravenous and oral contrast. Individualized dose optimization techniques were used for this CT. COMPARISON: None. FINDINGS: The visualized lung bases are unremarkable. The visualized portions of the heart are within normal limits. Normal liver. Normal gallbladder and extrahepatic biliary system. Normal spleen. Normal pancreas. Normal bilateral adrenal glands. Mild right hydronephrosis and hydroureter with an obstructing calculus seen past the UVJ projecting within the lumen of the urinary bladder of 0.2 cm. Tiny nonobstructing right upper renal pole calculi. At least 4 nonobstructing small left renal calculi. Normal visualized stomach. Normal small intestine. There is moderate amount of fecal material. There is no obstruction. Normal colon. There is non-visualization of the appendix. Normal abdominal aorta. Normal inferior vena cava. Normal retroperitoneum. Normal urinary bladder. There is enlargement of the prostate gland. Normal abdominal wall. There are degenerative changes L5-S1. CT/Abdomen/Pelvis without Cont IMPRESSION: Mild right hydronephrosis and hydroureter with an obstructing calculus seen past the UVJ within the lumen of the urinary bladder. Bilateral nonobstructing renal calculi. Electronically Signed: Molly Penn MD at 3:08 EDT , Service support ,
[2021-04-30 00:28] LABS: Bacteria 0 SEEN /hpf (None Seen); Mucous, Urine 0 SEEN /hpf (<or=2+); Squamous Epithelial Cells - UA 0 SEEN /hpf (0-5)
[2021-04-30 00:30] LABS: Absolute Lymphocyte Count 1.83 X10^3/uL (0.83-4.51); Absolute Neutrophil Count 5.1 X10^3/uL (2.0-7.7); Basophil# 0.04 X10^3/uL; Basophil% 0.5 % (0-1); Eosinophil# 0.19 X10^3/uL; Eosinophils% 2.4 % (0-5); Hematocrit 42.5 % (40-54); Hemoglobin 14.3 g/dL (13.0-16.5); Lymphocyte # 1.83 X10^3/ul (0.83-4.51); Lymphocyte % 23.2 % (19-41); Mean Corp Hgb Conc 33.6 g/dL (32-36); Mean Platelet Vol. 10.6 fl (6.2-12.0); Monocyte# 0.72 X10^3/uL; Monocyte% 9.1 % (0-10); NRBC Flagged by Analyzer 0 % (0-5); Neutrophil # 5.07 X10^3/uL (2.7-7.7); Neutrophil % 64.4 % (47-70); Platelet Count 177 K/mm3 (150-450); RBC Distribution Width CV 13.2 % (11.6-14.6); RBC Distribution Width SD 44.4 fl (35.1-43.9); Red Blood Count 4.62 M/mm3 (4.6-6.2); White Blood Count 7.9 K/mm3 (4.4-11.0)
[2021-04-30 00:44] LABS: Color, Urine Yellow (Yellow); Glucose, Dipstick Normal (Normal); Ketone-Dipstick Negative (Negative); Leukocyte Esterase-Dipstick 25 /ul (Negative); Nitrite-Dipstick Negative (Negative); Occult Blood-Urine 25 /ul (Negative); Protein-Dipstick 15 mg/dl (Negative); Urine Bilirubin Dipstick Negative (Negative); Urine Clarity Clear (Clear); Urine Urobilinogen Normal (Normal)
[2021-04-30 00:51] LABS: Anion Gap 5 (5-15); BUN 30 mg/dL (7-18); BUN/Creat Ratio 24.6 RATIO (10-20); Calcium,Total 8.8 mg/dL (8.5-10.1); Chloride 109 mmol/L (98-107); Creatinine, Serum 1.22 mg/dL (0.70-1.30); EST Glomerular Filtration Rate 63 mL/min (>60); Est Glom Filt Rate - Afr Amer 76 mL/min (>60); Estimated Creatinine Clearance 53.75 ml/min; Glucose 104 mg/dL (74-106); Potassium 3.6 mmol/L (3.5-5.1); Sodium Level 141 mmol/L (136-145)
[2021-04-30 00:57] LABS: Red Blood Cells-Urine 0-5 SEEN /hpf (0-5); White Blood Cells 0-5 SEEN /hpf (0-5)
--- NOTE | 2021-04-30 01:47 | EX.ED.GUMALE ---
HPI History of Present Illness Chief Complaint: Male Pain/Injury Informant: patient and spouse/S.O. Pain Onset: Days Context: Gradual Onset Timing: Waxes and wanes Current Severity: Moderate Maximum Severity: Severe Narrative Narrative: Patient presents secondary to right testicular pain for the last 3 days. He states pain is been constant but does wax and wane in severity. He initially did have pain around the right flank region. He denies dysuria or urinary frequency. No obvious blood in the urine. No injury. PFSH PFSH Medical History GERD (gastroesophageal reflux disease) Home Medications pantoprazole 20 mg tablet,delayed release 40 mg PO DAILY MDD Reflux 08/02/18 [History Last Taken 12/04/18 08:00 40 mg] hydrocodone-acetaminophen 1 tab PO Q6H PRN 3 Days #10 tab 04/30/21 [Rx Last Taken Unknown] ibuprofen 600 mg PO Q8H PRN PRN #10 tab 04/30/21 [Rx Last Taken Unknown] ondansetron 4 mg PO Q8H PRN #10 tab 04/30/21 [Rx Last Taken Unknown] Allergy/AdvReac Type Severity Reaction Status Date / Time No Known Allergies Allergy Verified 06/16/19 17:01 Social History Smoking Status: Never smoker ROS ROS ED Constitutional Constitutional ED: Denies chills or fever(s) Eyes Eyes: Denies change in vision ENT ENT ED: Denies sore throat Cardiovascular Cardiovascular: Denies chest pain Respiratory/Chest Respiratory/Chest: Denies cough or dyspnea Gastrointestinal Gastrointestinal: Reports abdominal pain and nausea; Denies diarrhea or vomiting Genitourinary Genitourinary ED: Denies dysuria, hematuria or urinary frequency Musculoskeletal Musculoskeletal: Reports back pain Integumentary Denies rash Neurologic Neurologic: Denies headache(s) or weakness Allergic/Immunologic Allergic/Immunologic ED: Denies urticaria EXAM Physical Exam Const Vital Signs: 04/29/21 23:18 Temperature 97.8 F Temperature Source Temporal Pulse Rate 57 L Respiratory Rate 16 Blood Pressure 176/75 H Blood Pressure Mean 108 Pulse Ox 97 Oxygen Delivery Method Room Air Positive well nourished and well developed General Appearance ED: well developed HEENT Reports normocephalic and head/scalp atraumatic Eyes PERRL and EOMs intact bilaterally Neck supple Chest Wall inspection of chest normal and palpation of chest normal Resp normal respiratory effort and clear to auscultation bilaterally Cardio regular rate and regular rhythm GI normal to inspection, nondistended, normoactive bowel sounds and non-tender Palpation: soft Bladder / Kidney Exam: CVA tenderness right Penis: normal penis and circumcised Scrotum: testes descended bilaterally; Negative for tenderness, edematous or scrotal swelling Testes: testicular lie normal Extremity normal to inspection Neuro oriented x3 and no sensory deficits noted Sensorium / Orientation: alert Motor Exam: strength 5/5 throughout Psych mental status grossly normal Skin no rashes or lesions noted MDM MDM MDM Narrative Medical decision making narrative: Patient is given morphine, Toradol, Zofran, IV fluids. Lab work, urinalysis, CT flank obtained. Lab Data Attestation: I reviewed the patient's lab results. Labs: Laboratory Results - last 24 hr 04/30/21 04/30/21 04/30/21 00:00 00:25 00:25 WBC 7.9 RBC 4.62 Hgb 14.3 Hct 42.5 MCV 92.0 MCH 31.0 MCHC 33.6 RDW Std Deviation 44.4 H RDW Coeff of Tung 13.2 Plt Count 177 MPV 10.6 Immature Gran % (Auto) 0.400 Neut % (Auto) 64.4 Lymph % (Auto) 23.2 [place] % (Auto) 9.1 Eos % (Auto) 2.4 Baso % (Auto) 0.5 Absolute Neuts (auto) 5.1 Absolute Lymphs (auto) 1.83 Nucleated RBC % 0 Sodium 141 Potassium 3.6 Chloride 109 H Carbon Dioxide 27.0 Anion Gap 5 BUN 30 H Creatinine 1.22 Estim Creat Clear Calc 53.75 Est GFR (MDRD) Af Amer 76 Est GFR (MDRD) Non-Af 63 BUN/Creatinine Ratio 24.6 H Glucose 104 Calcium 8.8 Urine Color Yellow Urine Clarity Clear Urine pH 5.0 Ur Specific [place] 1.020 Urine Protein 15 H Urine Glucose (UA) Normal Urine Ketones Negative Urine Occult Blood 25 H Urine Nitrite Negative Urine Bilirubin Negative Urine Urobilinogen Normal Ur Leukocyte Esterase 25 H Urine RBC 0-5 SEEN Urine WBC 0-5 SEEN Ur Squamous Epith Cells 0 SEEN Urine Bacteria 0 SEEN Urine Mucus 0 SEEN Radiography Diagnostic Testing: Radiology Impression Abdomen/Pelvis CT 04/30/21 00:25 IMPRESSION: Mild right hydronephrosis and hydroureter with an obstructing calculus seen past the UVJ within the lumen of the urinary bladder. Bilateral nonobstructing renal calculi. Electronically Signed: Molly Penn MD at 3:08 EDT , Service support , Treatment and Re-Evaluation Comments:: On repeat evaluation patient's pain is much improved. There was a delay in getting the CT report back. On my review I thought the stone causing her issue was still at the UVJ, but radiology feels it is within the bladder. Patient will be given a short course of pain medication to use if he still has continued spasms. He has a urologist in [place] that he can follow-up with. Discharge Plan Triage Chief Complaint: Male Pain/Injury Other Complaint: Flank Pain ED Provider: Nicol Pillai Dx/Rx/DC Orders Clinical Impression: Kidney stone Instructions: ED Kidney Stone w/ Colic Prescriptions: New hydrocodone-acetaminophen 5-325 mg tablet 1 tab PO Q6H PRN (Reason: pain) 3 Days Qty: 10 RF: 0 ibuprofen 600 mg tablet 600 mg PO Q8H PRN PRN (Reason: pain) Qty: 10 RF: 0 ondansetron 4 mg tablet,disintegrating 4 mg PO Q8H PRN (Reason: nausea and vomiting) Qty: 10 RF: 0 No Action pantoprazole [Protonix] 20 mg tablet,delayed release (DR/EC) 40 mg PO DAILY MDD Reflux RF: 0 Primary Care Provider: Willy Bravo Referrals: Willy Bravo MD [Primary Care Provider] - Disposition Disposition: Home, Self Care
[2021-04-30 03:31] VITALS: PULSE 74; RESP 16; O2SAT 97
== END 2021-04-30 03:32 | disposition home or self-care (01) ==
PROVIDERS: Emergency Provider Emergency Medicine; PCP Family Medicine
DX: N21.0 Calculus in bladder (principal); K21.9 Gastro-esophageal reflux disease without esophagitis; Z79.899 Other long term (current) drug therapy
CPT/HCPCS: 74176; 80048; 81001; 85025; 96361; 96374; 96375; 99284; J7030; A4216; J2405

== ENCOUNTER → 2021-07-30 14:05 | Outpatient (CLI) | payer MEDICARE, SELFPAY ==
[2021-07-30 15:41] LABS: PSA,Total- Diagnostic 2.57 ng/mL (0.0-4.0)
== END ==
PROVIDERS: PCP Family Medicine
DX: R97.20 Elevated prostate specific antigen [PSA] (principal); N40.0 Benign prostatic hyperplasia without lower urinary tract symptoms; Z98.890 Other specified postprocedural states
CPT/HCPCS: 36415; 84153

== ENCOUNTER → 2021-08-10 | Outpatient (CLI) | payer MEDICARE, SELFPAY | END | disposition home or self-care (01) | LOC: LABSPEC 12:19 | PROVIDERS: PCP Family Medicine; Visit Provider Physician Assistant Surgical | DX: Z20.822 Contact with and (suspected) exposure to COVID-19 (principal) | CPT/HCPCS: 87635; U0005; U0003 ==

== ENCOUNTER → 2022-08-07 | Outpatient (CLI) | payer MEDICARE, SELFPAY ==
[2022-08-07 12:44] LABS: PSA,Total- Diagnostic 3.28 ng/mL (0.0-4.0)
== END | disposition home or self-care (01) ==
LOC: BIMLAB 09:57
PROVIDERS: PCP Family Medicine
DX: R97.20 Elevated prostate specific antigen [PSA] (principal); Z98.890 Other specified postprocedural states; N40.0 Benign prostatic hyperplasia without lower urinary tract symptoms; Z87.442 Personal history of urinary calculi; N52.9 Male erectile dysfunction, unspecified
CPT/HCPCS: 36415; 84153

== ENCOUNTER 2023-03-08 00:19 | Emergency (ER) | payer MEDICARE, SELFPAY ==
[2023-03-08 00:22] VITALS: BP 175/77; PULSE 56; RESP 20; TEMP 36.8; O2SAT 98; BMI 26.9
--- NOTE | 2023-03-08 00:58 | CT_ITS ---
STUDY: CT ABDOMEN AND PELVIS WITHOUT CONTRAST REASON FOR EXAM: Male, 67 years old. Left flank pain RADIATION DOSAGE (If Supplied By Facility): CTDIvol = ( 6.57 ) mGy, DLP = ( 364.92 ) mGycm TECHNIQUE: Transaxial images were obtained from the dome of the diaphragm to the symphysis pubis without oral contrast, and without intravenous contrast. Sagittal and coronal images were reconstructed. Individualized dose optimization techniques were used for this CT. COMPARISON: CT abdomen and pelvis April 30, 2021 FINDINGS: The visualized lung bases are unremarkable. The visualized portions of the heart are within normal limits. Normal liver. Normal gallbladder and extrahepatic biliary system. Normal spleen. Normal pancreas. Normal bilateral adrenal glands. There is a punctate stone right kidney. There is no hydronephrosis. There are several stones within the left kidney similar to prior study measuring up to 3 mm. There is mild left renal edema. There is minimal left hydronephrosis. There is minimal distention of the left ureter. There is a 3 mm stone at the level of the distal ureter at the ureterovesicular junction. Normal visualized stomach. There is nonspecific mildly distended appearance of a few of the loops of small bowel. Normal colon. The appendix is visualized and appears normal. Normal abdominal aorta. Normal inferior vena cava. There are a few nonspecific subcentimeter retroperitoneal lymph nodes. There is a 3 mm stone at the level of the left side ureterovesicular junction. There is mild prostate enlargement. There is a left-sided fatty inguinal hernia. There is degenerative change at the level of L4-L5 and L5-S1. At L5-S1 there is disc space narrowing spondylosis [id number] neural foramina narrowing no significant central stenosis. CT/Abdomen/Pelvis without Cont IMPRESSION: Mild left renal edema with minimal left hydronephrosis secondary to a 3 mm stone in the left-sided ureter vesicular junction. Multiple nonobstructing stones within the left kidney. Punctate stone right kidney Mild focal ileus. Mild to moderate constipation. Degenerative change of the lumbar spine. Electronically Signed: Macy Loo MD at 1:39 EDT ,
[2023-03-08] MEDS: Morphine 4 MG/ML Syringe IV (01:11)
[2023-03-08] MEDS: 0.9% Normal Saline 1,000 ML 999 ML IV (01:11)
[2023-03-08] MEDS: Ondansetron 4 MG/2 ML Vial IV (01:11)
[2023-03-08 01:20] LABS: Absolute Lymphocyte Count 2.11 X10^3/uL (0.83-4.51); Absolute Neutrophil Count 3.1 X10^3/uL (2.0-7.7); Basophil# 0.05 X10^3/uL; Basophil% 0.8 % (0-1); Eosinophil# 0.26 X10^3/uL; Eosinophils% 4.3 % (0-5); Hematocrit 44.2 % (40-54); Hemoglobin 14.9 g/dL (13.0-16.5); Lymphocyte # 2.11 X10^3/ul (0.83-4.51); Lymphocyte % 34.5 % (19-41); Mean Corp Hgb Conc 33.7 g/dL (32-36); Mean Corpuscular Hgb 31.2 pg (27.0-32.0); Mean Corpuscular Volume 92.5 fL (80-94); Mean Platelet Vol. 11.4 fl (6.2-12.0); Monocyte% 9.8 % (0-10); NRBC Flagged by Analyzer 0 % (0-5); Neutrophil # 3.08 X10^3/uL (2.7-7.7); Neutrophil % 50.4 % (47-70); Platelet Count 182 K/mm3 (150-450); RBC Distribution Width CV 13.2 % (11.6-14.6); RBC Distribution Width SD 44.7 fl (35.1-43.9); Red Blood Count 4.78 M/mm3 (4.6-6.2); White Blood Count 6.1 K/mm3 (4.4-11.0)
[2023-03-08 01:22] LABS: Glucose, Dipstick Normal (Normal); Ketone-Dipstick Negative (Negative); Leukocyte Esterase-Dipstick 500 /ul (Negative); Mucous, Urine 0 SEEN /hpf (<or=2+); Nitrite-Dipstick Negative (Negative); Occult Blood-Urine Negative /ul (Negative); Protein-Dipstick 15 mg/dl (Negative); Red Blood Cells-Urine 0 SEEN /hpf (0-5); Specific Gravity, Urine 1.015 (1.002-1.030); Squamous Epithelial Cells - UA 0 SEEN /hpf (0-5); Urine Bilirubin Dipstick Negative (Negative); Urine Urobilinogen Normal (Normal)
[2023-03-08 01:23] LABS: Color, Urine Yellow (Yellow); Urine Clarity Clear (Clear)
[2023-03-08 01:33] LABS: Anion Gap 5 (5-15); BUN 25 mg/dL (7-18); BUN/Creat Ratio 21.7 RATIO (10-20); Calcium,Total 8.8 mg/dL (8.5-10.1); Chloride 107 mmol/L (98-107); Creatinine, Serum 1.15 mg/dL (0.70-1.30); EST Glomerular Filtration Rate 67 mL/min (>60); Est Glom Filt Rate - Afr Amer 81 mL/min (>60); Estimated Creatinine Clearance 56.25 ml/min; Glucose 96 mg/dL (74-106); Potassium 4.1 mmol/L (3.5-5.1); Sodium Level 142 mmol/L (136-145)
[2023-03-08 01:41] LABS: Bacteria RARE /hpf (None Seen); White Blood Cells 0-5 SEEN /hpf (0-5)
[2023-03-08] MEDS: Ketorolac 15 MG/ML Vial IM (02:18)
--- NOTE | 2023-03-08 03:13 | EX.ED.DYSGE1 ---
HPI History of Present Illness Chief Complaint: Flank Pain Informant: patient and spouse/S.O. Narrative Narrative: Patient is a 67-year-old male who states that roughly around 930 this evening he developed pain in his left-sided abdomen radiating towards his groin. He states that there is no improvement or worsening of the pain with changing positions. He denies any recent trauma or excessive activity. He denies any hematuria or dysuria. He denies any history of recent back surgery or constipation or abdominal surgery. He states that the pain is not improving with time and [id number] medication with this he presents for evaluation [facility] Medical History GERD (gastroesophageal reflux disease) Home Medications pantoprazole 20 mg tablet,delayed release (Protonix) 40 mg PO DAILY 08/02/18 [History Last Taken 12/04/18 08:00 40 mg] ketorolac 10 mg tablet 10 mg PO Q6H PRN pain 5 days #20 tabs 03/08/23 [Rx Last Taken Unknown] oxycodone-acetaminophen 5 mg-325 mg tablet (Percocet) 1 tab PO Q6H PRN pain 3 days #12 tabs 03/08/23 [Rx Last Taken Unknown] tamsulosin 0.4 mg capsule (Flomax) 0.4 mg PO DAILY 14 days #14 caps 03/08/23 [Rx Last Taken Unknown] Allergy/AdvReac Type Severity Reaction Status Date / Time No Known Allergies Allergy Verified 03/08/23 00:25 Social History Smoking Status: Never smoker [facility] ED Constitutional Constitutional ED: Denies chills or fever(s) ENT ENT ED: Denies sore throat Cardiovascular Cardiovascular: Denies chest pain Respiratory/Chest Respiratory/Chest: Denies cough or dyspnea Gastrointestinal Gastrointestinal: Reports abdominal pain and nausea; Denies diarrhea or vomiting Genitourinary Genitourinary ED: Denies dysuria or hematuria Musculoskeletal Musculoskeletal: Reports back pain Integumentary Denies rash Neurologic Neurologic: Denies headache(s) Hematologic/Lymphatic Hematologic/Lymphatic: Denies easy bleeding or easy bruising EXAM Physical Exam Const Vital Signs: 03/08/23 00:22 03/08/23 00:26 03/08/23 03:29 Temperature 98.3 F Temperature Source Oral Pulse Rate 56 L 79 Respiratory Rate 20 H 18 Respiratory Effort Normal Non-Labored Respiratory Pattern Normal Blood Pressure 175/77 H 128/65 H Blood Pressure Mean 109 Pulse Ox 98 98 Oxygen Delivery Method Room Air Positive well nourished and well developed General Appearance ED: well developed HEENT HEENT Narrative: Normocephalic atraumatic Eyes PERRL and EOMs intact bilaterally General Eye ED: Negative for scleral icterus Neck supple Resp normal respiratory effort and clear to auscultation bilaterally Cardio regular rate and regular rhythm Rate: other Other Details: Radial pulses are plus 2 out of 4 bilaterally are equal and symmetric Carotid pulses equal and symmetric as well GI non-distended GI Narrative: Abdomen is soft and nondistended with normal active bowel sounds. There is pain on palpation in the left mid to lower abdomen without voluntary guarding or rigidity. No pulsatile mass or fluid wave Auscultation: normoactive bowel sounds Palpation: soft Back/Spine Back/Spine Narrative: Positive left CVA pain present Extremity normal to inspection Neuro oriented x3, CN's II-XII intact bilaterally and no sensory deficits noted Sensorium / Orientation: alert Motor Exam: strength 5/5 throughout Psych mental status grossly normal Skin no rashes or lesions noted Skin Narrative: No abrasions or ecchymosis to suggest trauma and no erythema or warmth to suggest infection MDM MDM MDM Narrative Medical decision making narrative: Patient presented to the ER with sudden onset left sided abdominal pain as well as CVA pain and there is concern for kidney stone versus diverticulitis or potential hernia. On exam there is no obvious hernia palpated no overlying soft tissue changes to suggest shingles cellulitis or abscess. Therefore basic labs and noncontrast CT were obtained. Labs revealed no signs of acute kidney injury or urosepsis. CT scan confirmed a 3 mm stone in the left distal UVJ consistent with his presentation and hematuria. He was given morphine with minimal symptom improvement but after Toradol pain reduced to a value of a 2. At this time he has improvement of his pain and there are no physical exam or laboratory findings concerning for acute kidney injury or urosepsis and therefore patient is safe for discharge with symptomatic care. History & Record Review Discussion w/independent historian: Patient and Significant other Lab Data Attestation: I reviewed the patient's lab results. Labs: Laboratory Results - last 24 hr 03/08/23 01:10 WBC 6.1 RBC 4.78 Hgb 14.9 Hct 44.2 MCV 92.5 MCH 31.2 MCHC 33.7 RDW Std Deviation 44.7 H RDW Coeff of Tung 13.2 Plt Count 182 MPV 11.4 Immature Gran % (Auto) 0.200 Neut % (Auto) 50.4 Lymph % (Auto) 34.5 Calvert % (Auto) 9.8 Eos % (Auto) 4.3 Baso % (Auto) 0.8 Absolute Neuts (auto) 3.1 Absolute Lymphs (auto) 2.11 Nucleated RBC % 0 Sodium 142 Potassium 4.1 Chloride 107 Carbon Dioxide 30.0 Anion Gap 5 BUN 25 H Creatinine 1.15 Estim Creat Clear Calc 56.25 Est GFR (MDRD) Af Amer 81 Est GFR (MDRD) Non-Af 67 BUN/Creatinine Ratio 21.7 H Glucose 96 Calcium 8.8 Urine Color Yellow Urine Clarity Clear Urine pH 7.0 Ur Specific Jay 1.015 Urine Protein 15 H Urine Glucose (UA) Normal Urine Ketones Negative Urine Occult Blood Negative Urine Nitrite Negative Urine Bilirubin Negative Urine Urobilinogen Normal Ur Leukocyte Esterase 500 H Urine RBC 0 SEEN Urine WBC 0-5 SEEN Ur Squamous Epith Cells 0 SEEN Urine Bacteria RARE Urine Mucus 0 SEEN Radiography Diagnostic Testing: Clinical Impression(s) from Imaging Studies Abdomen/Pelvis CT 03/08/23 00:58 IMPRESSION: Mild left renal edema with minimal left hydronephrosis secondary to a 3 mm stone in the left-sided ureter vesicular junction. Multiple nonobstructing stones within the left kidney. Punctate stone right kidney Mild focal ileus. Mild to moderate constipation. Degenerative change of the lumbar spine. Electronically Signed: Macy Loo MD at 1:39 EDT , Discharge Plan Triage Chief Complaint: Flank Pain ED Provider: De Gage Dx/Rx/DC Orders Clinical Impression: Renal colic, Kidney stone on left side Instructions: ED Kidney Stone w/ Colic Prescriptions: New oxycodone-acetaminophen [Percocet] 5-325 mg tablet 1 tab PO Q6H PRN (Reason: pain) 3 Days Qty: 12 0RF ketorolac 10 mg tablet 10 mg PO Q6H PRN (Reason: pain) 5 Days Qty: 20 0RF tamsulosin [Flomax] 0.4 mg capsule 0.4 mg PO DAILY 14 Days Qty: 14 0RF No Action pantoprazole [Protonix] 20 mg tablet,delayed release (DR/EC) 40 mg PO DAILY MDD Reflux Primary Care Provider: Willy Bravo Referrals: Willy Bravo MD [Primary Care Provider] - Clifford Jacome MD [Med Staff - Active Staff] - Activity Restrictions/Additional Instructions: Please follow-up with urology for repeat evaluation and for possible stent placement if needed. Take your Percocet and Toradol together up to 4 times a day to help control pain. If you develop a fever over 100.4 or the pain medication is not controlling your symptoms please return for repeat evaluation Disposition Disposition: Home, Self Care Discharge Date/Time: 03/08/23 03:31
[2023-03-08 03:29] VITALS: BP 128/65; PULSE 79; RESP 18; O2SAT 98
== END 2023-03-08 03:31 | disposition home or self-care (01) ==
PROVIDERS: Emergency Provider Emergency Medicine; PCP Family Medicine; Visit Provider Emergency Medicine
DX: N13.2 Hydronephrosis with renal and ureteral calculous obstruction (principal); N23 Unspecified renal colic
CPT/HCPCS: 74176; 80048; 81001; 85025; 96361; 96372; 96374; 96375; 99282; J7030; A4216; J2405

== ENCOUNTER → 2023-07-14 | Outpatient (CLI) | payer MEDICARE, SELFPAY ==
[2023-07-14 13:14] LABS: PSA,Total- Diagnostic 2.96 ng/mL (0.0-4.0)
== END | disposition home or self-care (01) ==
LOC: BIMLAB 11:19
PROVIDERS: PCP Family Medicine
DX: N40.0 Benign prostatic hyperplasia without lower urinary tract symptoms (principal); N52.9 Male erectile dysfunction, unspecified; Z87.442 Personal history of urinary calculi; Z98.890 Other specified postprocedural states
CPT/HCPCS: 36415; 84153

== ENCOUNTER 2023-08-31 21:56 | Emergency (ER) | payer MEDICARE, SELFPAY ==
[2023-08-31 21:56] VITALS: BP 202/90; PULSE 53; RESP 18; TEMP 36.9; O2SAT 97; BMI 26.6
[2023-08-31] MEDS: Clindamycin HCl 150 MG Capsule 300 MG PO (22:33)
[2023-08-31] MEDS: Lidocaine 2% /Epi 1:100 (20ml) 20 ML VIAL INFILT (22:36)
--- NOTE | 2023-08-31 22:43 | EX.ED.DYSGE1 ---
HPI History of Present Illness Chief Complaint: Dental Informant: patient and spouse/S.O. Narrative Narrative: 68-year-old male with past medical history of GERD previous kidney stone. He states he had a crown come loose last week and then this was just fixed about 2 or 3 days ago by the dentist. He states that in that timeframe he developed pain and swelling in the right lower jaw. He denies any fevers or chills or difficulty breathing or swallowing but as the pain has increased he has concern for infection and therefore comes in for evaluation. PFSH PFS Medical History GERD (gastroesophageal reflux disease) Home Medications pantoprazole 20 mg tablet,delayed release (Protonix) 40 mg PO DAILY 08/02/18 [History Last Taken 12/04/18 08:00 40 mg] clindamycin HCl 300 mg capsule 300 mg PO 4X/DAY 10 days #40 caps 08/31/23 [Rx Last Taken Unknown] oxycodone-acetaminophen 5 mg-325 mg tablet (Percocet) 1 tab PO Q6H PRN pain 3 days #12 tabs 08/31/23 [Rx Last Taken Unknown] Allergy/AdvReac Type Severity Reaction Status Date / Time No Known Allergies Allergy Verified 08/31/23 21:56 Social History Smoking Status: Never smoker ROS ROS ED Constitutional Constitutional ED: Denies chills or fever(s) ENT ENT ED: Reports other Details: Positive dental pain Cardiovascular Cardiovascular: Denies chest pain Respiratory/Chest Respiratory/Chest: Denies cough or dyspnea Gastrointestinal Gastrointestinal: Denies abdominal pain, diarrhea, nausea or vomiting Genitourinary Genitourinary ED: Denies dysuria Musculoskeletal Musculoskeletal: Denies myalgias Integumentary Denies rash Neurologic Neurologic: Denies headache(s) Hematologic/Lymphatic Hematologic/Lymphatic: Denies easy bleeding or easy bruising EXAM Physical Exam Const Vital Signs: 08/31/23 21:56 Temperature 98.5 F Temperature Source Temporal Pulse Rate 53 L Respiratory Rate 18 Blood Pressure 202/90 H Blood Pressure Mean 127 Pulse Ox 97 Oxygen Delivery Method Room Air Positive well nourished and well developed General Appearance ED: well developed HEENT Reports moist mucous membranes HEENT Narrative: Mild soft tissue swelling along the right lower jaw without obvious dental abscess noted No oral lesions no airway edema or compromise No signs of ANUG Eyes PERRL and EOMs intact bilaterally General Eye ED: Negative for scleral icterus Neck supple Neck Narrative: No brawny edema in the submental space to suggest Gama's angina Resp normal respiratory effort and clear to auscultation bilaterally Cardio regular rate and regular rhythm Extremity normal to inspection Neuro oriented x3, CN's II-XII intact bilaterally and no sensory deficits noted Sensorium / Orientation: alert Motor Exam: strength 5/5 throughout Psych mental status grossly normal Skin no rashes or lesions noted MDM MDM MDM Narrative Medical decision making narrative: Patient presented to the ER hypertensive but does not have a past medical history of this and is in pain which is most likely the reason why and otherwise has stable vitals. His history is consistent with a developing dental infection that most likely beyond when his crown became loose. He does not have physical exam findings for ANUG or posterior pharynx infection nor is or any brawny edema to suggest Gama's angina. I do not appreciate any type of salivary gland swelling to suggest sialoadenitis. At this time as he does not have signs of systemic infection or airway compromise there is no need for workup. Patient be started on clindamycin secondary to concern for dental infection and is otherwise safe for discharge. He was given a dental block as documented below to help with pain relief at this time Patient underwent inferior alveolar dental block using 1.5 mL of 0.5% Marcaine and 1.5 mL of 2% lidocaine with epinephrine. Patient achieved good anesthesia with the injection and tolerated procedure well without complication Discharge Plan Triage Chief Complaint: Dental ED Provider: De Gage Dx/Rx/DC Orders Clinical Impression: Dental infection, GERD (gastroesophageal reflux disease) Instructions: Dental Abscess, ED Dental Pain Prescriptions: New oxycodone-acetaminophen [Percocet] 5-325 mg tablet 1 tab PO Q6H PRN (Reason: pain) 3 Days Qty: 12 0RF clindamycin HCl 300 mg capsule 300 mg PO 4X/DAY 10 Days Qty: 40 0RF No Action pantoprazole [Protonix] 20 mg tablet,delayed release (DR/EC) 40 mg PO DAILY MDD Reflux Primary Care Provider: Willy Bravo Referrals: Willy Bravo MD [Primary Care Provider] - Activity Restrictions/Additional Instructions: Your history and exam is consistent with a developing dental infection. Take the antibiotic/clindamycin as directed to help resolve this. It would typically take 48 to 72 hours for this to take effect. In the meantime take the Percocet 3-4 times a day to help control pain. Follow-up with your dentist for repeat evaluation and to ensure there is not need for incision and drainage of the abscess. Return to the ER should you have any further concerns Disposition Disposition: Home, Self Care
--- OUTSIDE RECORDS SUMMARY | 2023-08-31 22:56 | XMS RPT_ITS | CCD ---
Author Name Unknown Address [address] [place] [address] Organization [facility] Care Team Providers Care Director Mobile Name Role Phone Jacoby Alvarez Unavailable Unavailable Jerry Fine Unavailable Unavailable Morgan Pham Unavailable Unavail able VERO AMANDA, DR AMANDA Primary Care Physician VERO AMANDA, DR AMANDA Primary Care Physician VERO AMANDA, DR AMANDA Primary Care Emile FINE MD, DR DICKEY Attending Sean PHAM MD, DR AMANDA Primary Care Emile FINE MD, DR DICKEY Attending Sean matta Medications Current Medications Medication Drug Class(es) Dates Sig (Normalized) Sig (Original) meclizine hydrochloride 25 mg oral tablet (1 source) Antiemetic Start: 08-21-2020 meclizine 25 mg oral tablet Dose : 25 mg = 1 tab(s), Oral, TID, PRN as needed for dizziness, # 30 tab(s), 0 Refill(s) Start Date: 08/21/20 Status: Ordered pantoprazole 40 mg extended release oral tablet (3 sources) Proton Pump Inhibitor Start: 05-24-2009 take 1 dose by mouth once daily Protonix Dose : 40 mg =, PO, Daily, 0 Refill(s), current med (Hx) Start Date: 05/24/09 Status: Ordered Problems Active Problems Problem Classification Problem Date Documented Da te Episodic/Chronic Calculus of urinary tract (3 sources) History of calculus of kidney 08-24-2021 Episodic Past or Other Problems Problem Classification Problem Date Documented Da te Episodic/Chronic Unclassified (1 source) R97.20 Onset: 03-31-2018 Results Test Name Value Interpretation Reference Range Facil ity Encounters Encounter Date Encounter Type Care Provider Facility Start: 07-28-2023 End: 07-29-[address] MORGAN PHAM MD Facility:A Start: 07-28-2023 End: 07-28-[address] JERRY FINE MD [facility] Start: 03-03-2023 End: 03-04-[address] MORGAN PHAM MD Facility:[facility] Start: 03-03-2023 End: 03-03-[address] JERRY FINE MD [facility] Start: 08-27-2021 End: 08-27-[address] JERRY FINE MD [facility] Start: 03-31-2018 Patient encounter Jerry leal Facility:[facility] Start: 10-08-2017 Patient encounter Jacoby Alvarez Facil ity:[facility] Procedures Date Procedure Procedure Detail Performing Clinician Start: 08-25-[address] JERRY FINE MD Finger structure (karan dy structure) DR JERRY FINE MD Local excision DR JERRY HARRIS MD Payers Date Payer Category Payer Private Health Insurance [id number] 2018 Unknown [id number] 1955 Unknown [id number] 1955 Unknown [id number] Social History Date Type Detail Facility Start: 08-15-2020 Never smoked t obacco (finding) [facility] Sex Assigned At Male [facility] Evaluation + Plan note Laboratory Note Date & Type Note Facility Evaluation + Plan note Future Appointments Appointment Date:08/30/2022 08:00:00 AM Scheduled Provider:JERRY FINE MD Location:UROLOGY Appointment Type:URO OV Future Scheduled TestsProstate Specific Antigen 08/27/Prostate Specific Antigen 08/21/21 [facility] Evaluation + Plan note Laboratory Note Date & Type Note Facility Evaluation + Plan note Future Appointments Appointment Date:08/01/2023 09:40:00 AM Scheduled Provider:JERRY FINE MD Location:UROLOGY Appointment Type:URO OV Future Scheduled TestsProstate Specific Antigen 02/20/Prostate Specific Antigen 08/03/23 [facility] Evaluation + Plan note Laboratory Note Date & Type Note Facility Evaluation + Plan note Future Appointments Appointment Date:08/09/2024 09:40:00 AM Scheduled Provider:JERRY FINE MD Location:UROLOGY Appointment Type:URO OV Future Scheduled TestsProstate Specific Antigen 02/20/Prostate Specific Antigen 07/28/24Prostate Specific Antigen 08/03/23 [facility] Hospital course Narrative Note Date & Type Note Facility Hospital course Narrative No data available for this section [facility] Hospital Discharge instructions Note Date & Type Note Facility Hospital Discharge instructions No data available for this section [facility] Progress note Note Date & Type Note Facility Progress note No data available for this section [facility] Summary Purpose Family History No Family History Records Found No data available for this section No Family History Records Found Advance Directives No Advanced Directives Records FoundNo Advanced Directives Records Found Additional Source Comments (unrecognized sect ion and content) No Status Records FoundNo Status Records Found INFORMATION SOURCE (unrecogn ized section and content) DATE CREATED AUTHOR AUTHOR'S ORGANIZ ATION 08/07/2023 [facility] ([place]) Patient Care team informatio n (unrecognized section and content) Care Team Personnel Name: JERRY FINE MD Position: P4 Physician - Urologist Member Role: Urologist Address: Address: [address] [place] [id number] Name: MORGAN PHAM MD Member Role: Primary Care Physician Address: Address: [address] [place] [id number] [place] Care Team Related Persons Name: ANABELLE GONZALEZ Address: [address] [place], [place] [id number] Care Team Personnel Name: JERRY FINE MD Position: P4 Physician - Urologist Member Role: Urologist Address: Address: [address] [place], [place] [id number] Name: MORGAN PHAM MD Member Role: Primary Care Physician Address: Address: [address] [place] [id number] [place] Care Team Related Persons Name: ANABELLE GONZALEZ Address: [address] [place] [place] [id number] FOR RECORDS PERTAINING TO PATIENTS WHO ARE OR HAVE BEEN ENROLLED IN A CHEMICAL DEPENDENCY/SUBSTANCEABUSE PROGRAM, SOME INFORMATION MAY BE OMITTED. This clinical summary was aggregated from multiple sources. Caution should be exercised in using it in the provision of clinical care. This summary normalizes information from multiple sources, and as a consequence, information in this document may materially change the coding, format and clinical context of patient data. In addition, data may be omitted in some cases. CLINICAL DECISIONS SHOULD BE BASED ON THE PRIMARY CLINICAL RECORDS. [facility]. provides no warranty or guarantee of the accuracy or completeness of information in this document.
== END 2023-08-31 23:01 | disposition home or self-care (01) ==
LOC: ED 22:54
PROVIDERS: Emergency Provider Emergency Medicine; PCP Family Medicine; Visit Provider Emergency Medicine
DX: K04.7 Periapical abscess without sinus (principal); K21.9 Gastro-esophageal reflux disease without esophagitis; Z79.899 Other long term (current) drug therapy
CPT/HCPCS: 64400; 64999; 99282

== ENCOUNTER 2023-09-01 15:59 | Emergency (ER) | payer MEDICARE, MEDICAID, SELFPAY ==
[2023-09-01 16:00] VITALS: BP 174/92; PULSE 64; RESP 14; TEMP 36.6; O2SAT 98; BMI 25.4
--- NOTE | 2023-09-01 16:57 | EKG12_ITS ---
Test Reason : HEADACHE Blood Pressure : / mmHG Vent. Rate : 052 BPM Atrial Rate : 052 BPM P-R Int : 168 ms QRS Dur : 084 ms QT Int : 420 ms P-R-T Axes : -01 -05 -13 degrees QTc Int : 390 ms Sinus bradycardia Septal infarct (cited on or before 17-APR-2012) Abnormal ECG When compared with ECG of 05-DEC-2018 05:22, No significant change was found Confirmed by ROLANDO AMANDA, JACOB ([id number]), editor map JOHN KO ([id number]) on 09/03/2023 9:03:45 AM Referred By: Confirmed By:JACOB MARSHALL MD
--- NOTE | 2023-09-01 16:59 | CT_ITS ---
STUDY: CT BRAIN WITHOUT CONTRAST REASON FOR EXAM: Male, 68 years old. headache RADIATION DOSAGE (If Supplied By Facility): CTDIvol = ( 44.99 ) mGy, DLP = ( 779.24 ) mGycm TECHNIQUE: Transaxial CT imaging of the brain was performed without administration of intravenous contrast material. Individualized dose optimization techniques were used for this CT. COMPARISON: MRI brain 12/04/2018. FINDINGS: Normal soft tissue structures. Normal calvarium. There is mild cerebral atrophy with widening of the extra-axial spaces and ventricular dilatation. Normal white matter tracts of the cerebral hemispheres. Normal basal ganglia and thalami. Normal brainstem. Normal cerebellum. There is no intracranial hemorrhage. There are no findings of an acute ischemic infarction. Normal visualized paranasal sinuses. CT/Brain/Head without Contrast IMPRESSION: Involutional changes otherwise normal unenhanced CT scan of the brain for age. Electronically Signed: Olga Hartman MD at 17:46 EST ,
--- NOTE | 2023-09-01 17:05 | EDS_ITS ---
HPI <YESSENIA Feliz - Last Filed: 09/01/23 19:21> History of Present Illness Chief Complaint: Headache Narrative Narrative: Patient is 68-year-old male with history of GERD, history of kidney stones who presents to the emergency department with complaints of migraine-like headache. Patient was seen here yesterday for a right lower jaw tooth infection. Patient was placed on clindamycin, given a digital block. Patient states since has been taking the clindamycin, has been having violent nausea and vomiting. Patient states he now developed a frontal headache that is severe and he is here for evaluation. Patient states he is unable to keep fluids down. He does have history of migraine headaches, last time he had significant migraine was 5 years ago. PFSH <YESSENIA Feliz - Last Filed: 09/01/23 19:21> [facility] Medical History GERD (gastroesophageal reflux disease) Home Medications pantoprazole 20 mg tablet,delayed release (Protonix) 40 mg PO DAILY 08/02/18 [History Last Taken 12/04/18 08:00 40 mg] clindamycin HCl 300 mg capsule 300 mg PO 4X/DAY 10 days #40 caps 08/31/23 [Rx Last Taken Unknown] oxycodone-acetaminophen 5 mg-325 mg tablet (Percocet) 1 tab PO Q6H PRN pain 3 days #12 tabs 08/31/23 [Rx Last Taken Unknown] penicillin V potassium 500 mg tablet 500 mg PO 4X/DAY #28 tabs 09/01/23 [Rx Last Taken Unknown] Allergy/AdvReac Type Severity Reaction Status Date / Time No Known Allergies Allergy Verified 08/31/23 21:56 Social History Smoking Status: Never smoker ROS <YESSENIA Feliz - Last Filed: 09/01/23 19:21> ROS ED ROS Narrative Constitutional: Negative for fever, chills, weight loss, weakness Eyes: Negative for vision loss, vision change, double vision ENT: Negative for any sore throat, ear pain, congestion. Positive for right posterior lower tooth pain Cardiovascular: Negative for any chest pain, tightness, palpitations Respiratory: Negative for any cough, sputum production, hemoptysis, dyspnea, dyspnea on exertion, orthopnea Gastrointestinal: Negative for any abdominal pain, nausea, vomiting, diarrhea, constipation, blood in stool, blood in vomit : Negative for any urinary frequency, dysuria, retention, blood in urine Muscle skeletal: Negative for any myalgias, arthralgias, neck pain, back pain Neurological: Negative for any syncope, paresthesias, dizziness. Headache Skin: Negative for any rashes, lumps, itching, abrasions, lacerations Psychiatric: Negative for any depression, anxiety, stress, suicidal ideation, homicidal ideation Hematologic: Negative for any easy bruising, excessive bruising, easy bleeding Allergies: Negative for any eczema, hives, rash EXAM <YESSENIA Feliz - Last Filed: 09/01/23 19:21> Physical Exam Narrative Exam Narrative: Vital signs reviewed. HEET: Head normocephalic atraumatic, TMs clear bilaterally. Posterior pharynx is clear, moist mucous membranes. Nares clear bilaterally. Positive photophobia Neck: Supple with no lymphadenopathy or tenderness. No signs of meningismus. Cardiac: Regular rate and rhythm no murmurs gallops or rubs, equal peripheral pulses bilaterally. Respiratory: Lungs clear to auscultation bilaterally. No chest tenderness. Abdomen: Soft, nontender, nondistended. No abdominal bruit or pulsatile masses. No hepatosplenomegaly Extremities: No peripheral edema, no signs of gross trauma or deformity. Active full range of motion of all extremities. Neuro: Cranial nerves II through XII intact, no focal neurological deficits. NIH stroke scale 0 Skin: Clean dry and intact with no rash, purpura, petechiae, vesicles or pustules. Backs/flank: No CVA tenderness, no midline spinal tenderness, no deformity. Psych: Normal mood and affect. No SI, HI or acute psychosis. Const Vital Signs: 09/01/23 16:00 09/01/23 19:32 Temperature 97.8 F Temperature Source Temporal Pulse Rate 64 Respiratory Rate 14 18 Blood Pressure 174/92 H Blood Pressure Mean 119 Pulse Ox 98 Oxygen Delivery Method Room Air Positive well nourished and well developed General Appearance ED: well developed <Dr. Eddie Mccord DO - Last Filed: 09/01/23 19:36> Physical Exam Const Vital Signs: 09/01/23 16:00 09/01/23 19:32 Temperature 97.8 F Temperature Source Temporal Pulse Rate 64 Respiratory Rate 14 18 Blood Pressure 174/92 H Blood Pressure Mean 119 Pulse Ox 98 Oxygen Delivery Method Room Air [facility] <Shen GaleanoYESSENIA hines - Last Filed: 09/01/23 19:21> [facility] Lab Data Labs: Laboratory Results - last 24 hr 09/01/23 17:18 WBC 11.8 H RBC 5.14 Hgb 15.8 Hct 47.1 MCV 91.6 MCH 30.7 MCHC 33.5 RDW Std Deviation 42.8 RDW Coeff of Tung 12.7 Plt Count 179 MPV 10.2 Immature Gran % (Auto) 0.500 Neut % (Auto) 89.1 H Lymph % (Auto) 5.0 L Burleson % (Auto) 5.0 Eos % (Auto) 0.1 Baso % (Auto) 0.3 Absolute Neuts (auto) 10.5 H Absolute Lymphs (auto) 0.59 L Nucleated RBC % 0 Differential Comment SEE COMMENT Platelet Estimate ADEQUATE RBC Morphology N CHROM Anisocytosis RARE Macrocytosis RARE Sodium 141 Potassium 4.0 Chloride 108 H Carbon Dioxide 30.0 Anion Gap 3 L BUN 23 H Creatinine 0.85 Estim Creat Clear Calc 75.06 Est GFR (MDRD) Af Amer 115 Est GFR (MDRD) Non-Af 95 BUN/Creatinine Ratio 27.0 H Glucose 118 H Calcium 8.8 Radiography Diagnostic Testing: Clinical Impression(s) from Imaging Studies Brain CT 09/01/23 16:59 IMPRESSION: Involutional changes otherwise normal unenhanced CT scan of the brain for age. Electronically Signed: Olga Hartman MD at 17:46 EST , EKG Sinus bradycardia: Attestation: I personally reviewed and interpreted this EKG as follows: Comments: This bradycardia, rate of 52 bpm, CT interval 168 ms, QRS duration 84 ms, no acute ST elevation, no acute infarct Treatment and Re-Evaluation :: Patient appears generally well, patient appears nontoxic, vital signs are stable. Presenting to the emergency department with complaints of nausea, vomiting, headache. Differential diagnosis includes migraine-like headache, reaction to the clindamycin such as nausea and vomiting. Patient could also be having some dehydration, patient given IV fluids, Reglan, Benadryl. He will receive a CT scan of the brain secondary to his history of migraine headaches and not having a history of the last 5 years. This to rule out any intracranial bleeding, subdural hematoma. Patient CT scan of the brain shows evolutionary changes otherwise normal unenhanced CT scan of the brain for age. Patient's laboratory values showed a slight leukocytosis white blood count 11.8, chemistries show slight elevated BUN at 23, creatinine 0.85 which is normal. Glucose 118. Patient responded well to IV fluids, Reglan, Benadryl. Patient will now receive IV Toradol be reevaluated. Evaluation, the patient felt much better. At this time, patient be diagnosed migraine headache, he will be switched to penicillin for his tooth infection will follow-up tomorrow with a dentist <Dr. Eddie Mccord, DO - Last Filed: 09/01/23 19:36> [facility] Narrative Medical decision making narrative: Patient appears generally well, patient appears nontoxic, vital signs are stable. Presenting to the emergency department with complaints of nausea, vomiting, headache. Differential diagnosis includes migraine-like headache, reaction to the clindamycin such as nausea and vomiting. Patient could also be having some dehydration, patient given IV fluids, Reglan, Benadryl. He will receive a CT scan of the brain secondary to his history of migraine headaches and not having a history of the last 5 years. This to rule out any intracranial bleeding, subdural hematoma. Patient CT scan of the brain shows evolutionary changes otherwise normal unenhanced CT scan of the brain for age. Patient's laboratory values showed a slight leukocytosis white blood count 11.8, chemistries show slight elevated BUN at 23, creatinine 0.85 which is normal. Glucose 118. Patient responded well to IV fluids, Reglan, Benadryl. Patient will now receive IV Toradol be reevaluated. Evaluation, the patient felt much better. At this time, patient be diagnosed migraine headache, he will be switched to penicillin for his tooth infection will follow-up tomorrow with a dentist This patient was seen with a PA/INVESTIGATIONS DIRECTOR Individually assessed they patient including history and physical. I have reviewed everything on the chart that is available and agree with the documentation provided by the PA/INVESTIGATIONS DIRECTOR including discussion about the assessment, treatment plan, discussion, and return precautions. Patient presenting with headache. Differential as above. Also treated for dental infection last evening. Patient medicated with Reglan and Benadryl. His headache did improve a little bit but not all the way improved. After his imaging was done and blood work was back he was given Toradol which did make his headache much better. Dentition appear normal on examination. Since patient is improving I will send him home with penicillin. Follow-up with dental. Lab Data Attestation: I reviewed the patient's lab results. Labs: Laboratory Results - last 24 hr 09/01/23 17:18 WBC 11.8 H RBC 5.14 Hgb 15.8 Hct 47.1 MCV 91.6 MCH 30.7 MCHC 33.5 RDW Std Deviation 42.8 RDW Coeff of Tung 12.7 Plt Count 179 MPV 10.2 Immature Gran % (Auto) 0.500 Neut % (Auto) 89.1 H Lymph % (Auto) 5.0 L Burleson % (Auto) 5.0 Eos % (Auto) 0.1 Baso % (Auto) 0.3 Absolute Neuts (auto) 10.5 H Absolute Lymphs (auto) 0.59 L Nucleated RBC % 0 Differential Comment SEE COMMENT Platelet Estimate ADEQUATE RBC Morphology N CHROM Anisocytosis RARE Macrocytosis RARE Sodium 141 Potassium 4.0 Chloride 108 H Carbon Dioxide 30.0 Anion Gap 3 L BUN 23 H Creatinine 0.85 Estim Creat Clear Calc 75.06 Est GFR (MDRD) Af Amer 115 Est GFR (MDRD) Non-Af 95 BUN/Creatinine Ratio 27.0 H Glucose 118 H Calcium 8.8 Radiography Diagnostic Testing: Clinical Impression(s) from Imaging Studies Brain CT 09/01/23 16:59 IMPRESSION: Involutional changes otherwise normal unenhanced CT scan of the brain for age. Electronically Signed: Olga Hartman MD at 17:46 EST , Discharge Plan Triage Chief Complaint: Headache ED Midlevel Provider: Shen Velazquez ED Provider: Eddie Mccord Dx/Rx/DC Orders Clinical Impression: Dental caries, Headache Instructions: Understanding Headache Pain, ED Dental Cavity Prescriptions: New penicillin V potassium 500 mg tablet 500 mg PO 4X/DAY Qty: 28 0RF No Action pantoprazole [Protonix] 20 mg tablet,delayed release (DR/EC) 40 mg PO DAILY MDD Reflux oxycodone-acetaminophen [Percocet] 5-325 mg tablet 1 tab PO Q6H PRN (Reason: pain) 3 Days Qty: 12 0RF clindamycin HCl 300 mg capsule 300 mg PO 4X/DAY 10 Days Qty: 40 0RF Primary Care Provider: Willy Bravo Referrals: Willy Bravo MD [Primary Care Provider] - Activity Restrictions/Additional Instructions: Please follow-up with your dentist. Take the penicillin. Stop taking the clindamycin. Disposition Disposition: Home, Self Care Discharge Date/Time: 09/01/23 19:33
[2023-09-01] MEDS: DiphenhydrAMINE 50 MG/ML Syringe 25 MG IV (17:11)
[2023-09-01] MEDS: Metoclopramide 10 MG/2 ML Vial IV (17:12)
[2023-09-01] MEDS: 0.9% Normal Saline (1000mL) 1,000 ML 1000 ML IV (17:12)
[2023-09-01 17:26] LABS: Absolute Lymphocyte Count 0.59 X10^3/uL (0.83-4.51); Absolute Neutrophil Count 10.5 X10^3/uL (2.0-7.7); Basophil# 0.04 X10^3/uL; Basophil% 0.3 % (0-1); Eosinophil# 0.01 X10^3/uL; Eosinophils% 0.1 % (0-5); Hematocrit 47.1 % (40-54); Hemoglobin 15.8 g/dL (13.0-16.5); Lymphocyte # 0.59 X10^3/ul (0.83-4.51); Mean Corp Hgb Conc 33.5 g/dL (32-36); Mean Corpuscular Hgb 30.7 pg (27.0-32.0); Mean Corpuscular Volume 91.6 fL (80-94); Mean Platelet Vol. 10.2 fl (6.2-12.0); Monocyte# 0.59 X10^3/uL; NRBC Flagged by Analyzer 0 % (0-5); Neutrophil # 10.53 X10^3/uL (2.7-7.7); Neutrophil % 89.1 % (47-70); POSITIVE DIFFERENTIAL YES; Platelet Count 179 K/mm3 (150-450); RBC Distribution Width CV 12.7 % (11.6-14.6); RBC Distribution Width SD 42.8 fl (35.1-43.9); Red Blood Count 5.14 M/mm3 (4.6-6.2); White Blood Count 11.8 K/mm3 (4.4-11.0)
[2023-09-01 17:35] LABS: Differential Indicated SCAN CRITERIA MET
[2023-09-01 17:42] LABS: Anion Gap 3 (5-15); BUN 23 mg/dL (7-18); Calcium,Total 8.8 mg/dL (8.5-10.1); Chloride 108 mmol/L (98-107); Creatinine, Serum 0.85 mg/dL (0.70-1.30); EST Glomerular Filtration Rate 95 mL/min (>60); Est Glom Filt Rate - Afr Amer 115 mL/min (>60); Estimated Creatinine Clearance 75.06 ml/min; Glucose 118 mg/dL (74-106); Sodium Level 141 mmol/L (136-145)
[2023-09-01 17:50] LABS: Anisocytosis RARE; Macrocytosis RARE; Platelet Estimate ADEQUATE (ADEQ); Red Cell Morphology N CHROM NORMAL (NORM C&C)
--- OUTSIDE RECORDS SUMMARY | 2023-09-01 18:03 | XMS RPT_ITS | CCD ---
Author Name Unknown Address [address] [place] [address] Organization [facility] Care Team Providers Care Helper Metal Hanging Name Role Phone Jacoby Alvarez Unavailable Unavailable [...] Patient encounter procedure DR JERRY FINE MD [facility] Start: 03-03-2023 End: 03-04-[address] MORGAN PHAM MD Facility:A Start: 03-03-2023 End: 03-03-[address] JERRY FINE MD [facility] Start: 08-27-2021 End: 08-27-[address] JERRY FINE MD [facility] Start: 03-31-2018 Patient encounter Jerry leal Facility:[facility] Start: 10-08-2017 Patient encounter Jacoby Alvarez Facil ity:[facility] Procedures Date Procedure Procedure Detail Performing Clinician Start: 08-25-[address] JERRY FINE MD Finger structure (karan dy structure) DR JERRY FINE MD Local excision DR JERRY HARRIS MD Payers Date Payer Category Payer Private Health Insurance [id number] 2018 Unknown [id number] 1955 Unknown [id number] 1955 Unknown [id number] Social History Date Type Detail Facility Start: 08-15-2020 Never smoked t obacco (finding) [facility] Sex Assigned At Male [facility] Evaluation + Plan note Laboratory Note Date & Type Note Facility Evaluation + Plan note Future Appointments Appointment Date:08/30/2022 08:00:00 AM Scheduled Provider:JERRY FINE MD Location:UROLOGY Appointment Type:URO OV Future Scheduled TestsProstate Specific Antigen 08/27/Prostate Specific Antigen 08/21/21 [facility] Evaluation + Plan note Laboratory Note Date & Type Note Facility Evaluation + Plan note Future Appointments Appointment Date:08/01/2023 09:40:00 AM Scheduled Provider:JERRY FINE MD Location:UROLOGY Appointment Type:URO OV Future Scheduled TestsProstate Specific Antigen 02/20/Prostate Specific Antigen 08/03/23 [facility] Evaluation + Plan note Laboratory Note Date & Type Note Facility Evaluation + Plan note Future Appointments Appointment Date:08/09/2024 09:40:00 AM Scheduled Provider:JERRY FINE MD Location:UROLOGY Appointment Type:URO OV Future Scheduled TestsProstate Specific Antigen 02/20/Prostate Specific Antigen 07/28/24Prostate Specific Antigen 08/03/23 [facility] Hospital course Narrative Note Date & Type Note Facility Hospital course Narrative No data available for this section [facility] Hospital Discharge instructions Note Date & Type Note Facility Hospital Discharge instructions No data available for this section [facility] Progress note Note Date & Type Note Facility Progress note No data available for this section [facility] Summary Purpose Family History No Family History Records Found No data available for this section No Family History Records Found Advance Directives No Advanced Directives Records FoundNo Advanced Directives Records Found Additional Source Comments (unrecognized sect ion and content) No Status Records FoundNo Status Records Found INFORMATION SOURCE (unrecogn ized section and content) DATE CREATED AUTHOR AUTHOR'S ORGANIZ ATION 08/07/2023 [facility] ([place]) Patient Care team informatio n (unrecognized section and content) Care Team Personnel Name: JERRY FINE MD Position: P4 Physician - Urologist Member Role: Urologist Address: Address: [address] [place] [id number] Name: MORGAN PHAM MD Member Role: Primary Care Physician Address: Address: [address] [place] [id number] [place] Care Team Related Persons Name: ANABELLE GONZALEZ Address: [address] [place], [place] [id number] Care Team Personnel Name: JERRY FINE MD Position: P4 Physician - Urologist Member Role: Urologist Address: Address: [address] [place], [place] [address] Name: MOGRAN PHAM MD Member Role: Primary Care Physician Address: Address: [address] [place] [id number] [place] Care Team Related Persons Name: ANABELLE GONZALEZ Address: [address] [place], [place] [id number] FOR RECORDS PERTAINING TO PATIENTS WHO ARE [...] BE BASED ON THE PRIMARY CLINICAL RECORDS. [facility] [facility]. provides no warranty or guarantee of the accuracy or completeness of information in this document.
[2023-09-01] MEDS: Ketorolac 15 MG/ML Vial IV (18:33)
[2023-09-01 19:32] VITALS: RESP 18
== END 2023-09-01 19:33 | disposition home or self-care (01) ==
PROVIDERS: Nurse Practitioner; Emergency Provider Student in an Organized Health Care Education/Training Program; PCP Family Medicine; Visit Provider Student in an Organized Health Care Education/Training Program
DX: G43.909 Migraine, unspecified, not intractable, without status migrainosus (principal); K02.9 Dental caries, unspecified; E86.0 Dehydration
CPT/HCPCS: 70450; 80048; 85025; 93005; 96374; 96375; 99283; J7030; A4216

== ENCOUNTER → 2024-06-02 | Outpatient (CLI) | payer MEDICARE, SELFPAY ==
--- NOTE | 2024-06-02 10:52 | RAD_ITS ---
STUDY: X-RAY - RIGHT SHOULDER REASON FOR EXAM: Male, 69 years old. pain, injury. R shoulder TECHNIQUE: 4 view(s) of the shoulder. COMPARISON: None. FINDINGS: Normal glenohumeral articulation. Normal acromioclavicular joint. Normal acromion. Normal humeral head and visualized proximal humerus. The soft tissue structures are unremarkable. There is no demonstrated fracture. Normal visualized pulmonary apex. RAD/Shoulder min 2 Views IMPRESSION: Normal x-ray examination of the shoulder. Electronically Signed: Wilbert Trimble MD at 16:58 EDT ,
== END | disposition home or self-care (01) ==
LOC: MTRAD 10:50
PROVIDERS: PCP Family Medicine; Referring Provider Family Medicine; Visit Provider Family Medicine
DX: M75.21 Bicipital tendinitis, right shoulder (principal)
CPT/HCPCS: 73030

== ENCOUNTER → 2024-07-07 | Outpatient (CLI) | payer MEDICARE, SELFPAY ==
--- NOTE | 2024-07-07 07:07 | MRI_ITS ---
STUDY: MRI RIGHT SHOULDER REASON FOR EXAM: Male, 69 years old. BICIPITAL TENDINITIS, TENOSYNOVITIS TECHNIQUE: Standardized fat and water weighted pulse sequences were obtained in all 3 orthogonal planes. COMPARISON: Right shoulder radiographs dated 06/02/2024. FINDINGS: There is a 3 x 3 mm full-thickness tear of the anterior distal supraspinatus tendon insertion (coronal T2 series 6 images 15-16; axial PD series 3 images 8-9). Normal infraspinatus tendon. Normal subscapularis tendon. Normal teres minor tendon. Normal supraspinatus muscle. Normal infraspinatus muscle. Normal subscapularis muscle. Normal teres minor muscle. Normal glenohumeral articulation. Normal humeral head and visualized proximal humerus. Normal biceps labral complex. Normal intracapsular long biceps tendon. Normal labrum. Normal capsulo-ligamentous complex. Normal rotator interval. There is hypertrophic acromioclavicular arthrosis, with inferior osteophyte formation, which mildly abuts the supraspinatus myotendinous junction. There is a Type II morphology (curved), with a neutral orientation. There is trace subacromial-subdeltoid bursal fluid. Normal visualized coracohumeral and coracoacromial ligaments. Normal quadrilateral space. Normal axillary space. Normal deltoid muscle. Normal trapezius muscle. MRI/Upper Ext Joint Only(Routine) IMPRESSION: 3 x 3 mm full-thickness tear of the anterior distal supraspinatus tendon insertion. Hypertrophic acromioclavicular arthrosis, with inferior osteophyte formation, which mildly abuts the supraspinatus myotendinous junction. Trace subacromial-subdeltoid bursal fluid. Electronically Signed: Sukhwinder Austin MD at 8:33 [facility] ,
== END | disposition home or self-care (01) ==
LOC: MRI 06:56
PROVIDERS: PCP Family Medicine; Referring Provider Family Medicine; Visit Provider Family Medicine
DX: M75.21 Bicipital tendinitis, right shoulder (principal)
CPT/HCPCS: 73221

== ENCOUNTER → 2024-07-16 | Outpatient (CLI) | payer MEDICARE, SELFPAY ==
[2024-07-16 12:35] LABS: PSA,Total- Diagnostic 4.51 ng/mL (0.0-4.0)
[2024-07-16 12:39] LABS: Anion Gap 5 (5-15); BUN 28 mg/dL (7-18); BUN/Creat Ratio 25.7 RATIO (10-20); Calcium,Total 9.8 mg/dL (8.5-10.1); Chloride 107 mmol/L (98-107); Cholesterol 179 mg/dL (200); Creatinine, Serum 1.09 mg/dL (0.70-1.30); EST Glomerular Filtration Rate 71 mL/min (>60); Est Glom Filt Rate - Afr Amer 86 mL/min (>60); Glucose 80 mg/dL (74-106); High Density Lipoprotein 46 mg/dL; Potassium 4.7 mmol/L (3.5-5.1); Sodium Level 140 mmol/L (136-145); Triglycerides 235 mg/dL; Very Low Density Lipoprotein 47 mg/dL (5-40)
== END | disposition home or self-care (01) ==
LOC: BIMLAB 10:52
PROVIDERS: PCP Family Medicine; Referring Provider Specialist; Visit Provider Specialist
DX: R97.20 Elevated prostate specific antigen [PSA] (principal); N40.0 Benign prostatic hyperplasia without lower urinary tract symptoms; N52.9 Male erectile dysfunction, unspecified; Z87.442 Personal history of urinary calculi
CPT/HCPCS: 36415; 80048; 80061; 84153

== ENCOUNTER 2024-12-15 14:00 | Outpatient (RCR) | payer MEDICARE, SELFPAY ==
--- NOTE | 2024-09-30 12:01 | HP.PTEVAL_ITS ---
Patient's Visit Information Visit Information Visit Information: ATILIO GONZALEZ is a 69 year old M referred to Physical Therapy by Dr. Maged Guy MD with a diagnosis of R RCR 09/14/24. Date of Evaluation: 09/30/24 Physical Therapist: Jc Dowling, DPT, OCS, CSCS Visit Plan Frequency: 2-3x /Week Duration: 3 Months Plan: 2-3x/week for up to 12 weeks PROM to 90 elevation and neutral er until 10/12 phase 1 phase 2 10/12-10/25 PROM to 180 elevation adn AAROM roation to 90 phas 3 10/25 to 12/10 for phase 3 full aROMand progressive RC strength and scap strength then return to [facility] per protocol on script ice as needed start with PROM R shoulder and gradual AROM elbow and scap IE HEP table er to neutral, table flexion to 90 10x, pendulum 45 sec , scap cirlces and elbow wirst flex /ext 10x all 3x/day and use of sling. Pt to be in sling outside of home until 6 week beka and all the time for first 4 weeks Subjective Subjective: R shoulder scope RCR supra and subscap around 09/13/24. Is R handed. Cuff was torn on vacation handing luggage to [employer] on [employer] bus 04/19/24 and was healthy prior. spent 6 months waiting to heal, x ray, MRI, found tear, sent to Ortho in mid June. Schedule worked out surgery in mid august. Was hard to lift heavier items prior but could get through life. Surgery went great with no problems, 10 day post op f/u was good. Now in sling all the time and willfor 4 weks. Pain level is minimimum, takes tylenol daily, took oxy for two days. Dull ache at rest. HEP: pendulums and fingers and wrist moving, elbow flex and ext. Ice no longer needed. retired administrative assistant front desk. Typically spneds day messing around in house , renovating condominium. Less active since surgery. enjoys running 5 ks, latest on in July. Enjoys incline machine total gym, not since April 18. Basic ADLS, dresses self, bathroom self, shower I. Pain R shouldr: Pain Intensity (Out of 10): 0 Pain Intensity Range: 0 and 3 Objective Objective: R arm in sling whcih is comfortable and donnbef and doffed I. Incisions are healed well and no signs of excessive redness heat or swelling. PROM R shoulder 40 flexion and 30 abd and -10 from neutral er all limited by pain slef limtied and felt tight to therapist. table er got to -2 form neutral er. elbow and wrist ROM is full albeit slow on the right side but ab le actively, hands open and closes well, Sensation WNL B UE to gross light touch. scap aROM R is poor in retraction adn depression, holds it elevated. L arm is WNL AROM and 4+/5 strength. Pain and stiffnss is evident today in his presentation but seems to be willing to do exercises and motivated. Balance/Special Test Scores Quick DASH Score: 75.0000 Goals Goal 1:: ST: AROM to 160 flexion and abd and 60 er adn L4 IR without pain or hesitation Goal Time Frame: 4-6 Weeks Goal 2:: sleep without waking. Goal Time Frame: 4-6 Weeks Goal 3:: LT: Pt able to get through normal day at normal speed and movement of R UE for basic ADLS Goal Time Frame: 6-8 Weeks Goal 4:: I appropriate long teerm ex for returning R arm back to normal usage. Goal Time Frame: 6-8 Weeks Goal 5:: Pt ready to get back to renovations and normal home workout. Goal Time Frame: 8-12 Weeks Goal 6:: Pt feel 100% back normal R UE Goal Time Frame: 8-12 Weeks Rehabilitation Potential Physical Therapy Diagnosis: stiffness and loss of rom after recent RCR Rehabilitation Potential: Good Anticipated Interventions Patient/Client Instruction: Educate patient on: Condition and Plan of Care For the Purpose of:: To decrease pain, To increase ROM, To improve nutrient delivery to tissue, To improve muscle performance and motor function, To increase tolerance to activity/condition/position, To improve ability of physical actions for home/community/work/leisure and To improve gait and locomotor functions Therapeutic Exercise to Include: Postural training, Passive ROM and Active ROM For the Purpose of:: To decrease pain, To increase ROM, To improve nutrient delivery to tissue and To improve muscle performance and motor function Manual Therapy Techniques to Include: Scar massage and Passive ROM For the Purpose of:: To decrease pain, To increase ROM, To improve nutrient delivery to tissue and To improve muscle performance and motor function Cryotherapy (ice pack, ice massage): Yes For the Purpose of:: To decrease pain and To decrease swelling/inflammation Text: Thank you for the opportunity to evaluate your patient. For Medicare and Medicare HMO plans, please review the plan of care and approve it. It will need to be FAXED BACK to us at [phone] for Medicare purposes. For Medicare only, by signing this I certify the plan of care. Please let me know if there are questions or concerns regarding this plan of care. Physician Signature: Date:
--- NOTE | 2024-12-01 11:54 | HP.PTREVAL ---
Re-Evaluation Intro: Dr. Maged Guy MD, It has been my pleasure to treat ATILIO GONZALEZ over the last 19 visits for R RCR 09/14/24. Please see the progress note below for an update on the physical therapy plan of care! Subjective Subjective: 11 weeks out. Feels improvement in what he is doing around house, brushing, dressing, doing hair etc. No pain pulling up jeans, tying shoes etc. Pain goes about 3/10 ache much of timex, not much worse than that. Sleeps well but aches upon waking. To doctor in 1.5 weeks HEP : tomas, stick behind back, wall flexion. AROM. Activities: hung blinds over weekends and felt weak but was able to do it. Still some limitations on pain and chores, carrying ladder. Objective Objective/Function: 140 flexion with stiff at end range, 40 er R L4 IR strength is 4-/5 rotations and flexion ahead of schedule ROM is where expected. Still some achyness even at rest which i don't like but he is using it quite a bit Plan Plan Plan: weekly to progress to BTB, WB ex, flexion/abduction strength adn ensure ROM improvements without pain. Balance/Gait/Functional tests Balance/Special Test Scores Quick DASH Score: 18.1800 Goals Goals Goal 1:: ST: AROM to 160 flexion and abd and 60 er adn L4 IR without pain or hesitation Goal Time Frame: 4-6 Weeks Goal Progress: Progressing Goal 2:: sleep without waking. Goal Time Frame: 4-6 Weeks Goal Progress: Goal Met Goal 3:: LT: Pt able to get through normal day at normal speed and movement of R UE for basic ADLS Goal Time Frame: 6-8 Weeks Goal Progress: Progressing Goal 4:: I appropriate long teerm ex for returning R arm back to normal usage. Goal Time Frame: 6-8 Weeks Goal Progress: Progressing Goal 5:: Pt ready to get back to renovations and normal home workout. Goal Time Frame: 8-12 Weeks Goal Progress: Progressing Goal 6:: Pt feel 100% back normal R UE Goal Time Frame: 8-12 Weeks Goal Progress: 75% Anticipated Interventions Anticipated Interventions Patient/Client Instruction: Educate patient on: Condition and Plan of Care For the Purpose of:: To decrease pain, To increase ROM, To improve nutrient delivery to tissue, To improve muscle performance and motor function, To increase tolerance to activity/condition/position, To improve ability of physical actions for home/community/work/leisure and To improve gait and locomotor functions Therapeutic Exercise to Include: Postural training, Passive ROM and Active ROM For the Purpose of:: To decrease pain, To increase ROM, To improve nutrient delivery to tissue and To improve muscle performance and motor function Manual Therapy Techniques to Include: Scar massage and Passive ROM For the Purpose of:: To decrease pain, To increase ROM, To improve nutrient delivery to tissue and To improve muscle performance and motor function Cryotherapy (ice pack, ice massage): Yes For the Purpose of:: To decrease pain and To decrease swelling/inflammation Re-Evaluation Ending Re-evaluation ending: Please do not hesitate to contact me at [phone] by phone or if you have questions or concerns regarding this new plan of care! Sincerely, Jc Dowling, DPT, OCS, CSCS
--- NOTE | 2024-12-15 14:17 | HP.PTDCSUM ---
Discharge Summary D/C summary: It has been my pleasure to treat ATILIO GONZALEZ referred by Dr. Maged Guy MD, with the diagnosis of R RCR 09/14/24 for a total of 21 visit(s). Discharge Date: 12/15/24 Please see the following information for a summary of their discharge status. Subjective Subjective: Saw doctor and is released and wants to be done. Will do ex at home. Pain is not an issue, sleeping well. 32 Pain R shouldr: Pain Intensity (Out of 10): 0 Overall Improvement % Improvement: 90 Objective Objective/Function: 145 flexion AROM but tight at 135 er 45 R and 58 L. IR to L5 all functional. Strength 4/5 flexioon, abd, and 4+ ir/er on R side. Goals Goal 1:: ST: AROM to 160 flexion and abd and 60 er adn L4 IR without pain or hesitation Goal Progress: Progressing Goal 2:: sleep without waking. Goal Progress: Goal Met Goal 3:: LT: Pt able to get through normal day at normal speed and movement of R UE for basic ADLS Goal Progress: Goal Met Goal 4:: I appropriate long teerm ex for returning R arm back to normal usage. Goal Progress: Goal Met Goal 5:: Pt ready to get back to renovations and normal home workout. Goal Progress: Goal Met Goal 6:: Pt feel 100% back normal R UE Goal Progress: 90 Plan Plan: d/c to HEP D/C Information d/c sentence: If there are questions or concerns regarding this patient's physical therapy, please feel free to call me at [phone]. Thank you for the referral of this patient. Sincerely, Jc Dowling, DPT, OCS, CSCS Balance/Gait/Functional tests Balance/Special Test Scores Quick DASH Score: 9.0900 Improvement % Improvement: 90
== END 2024-12-15 19:00 | disposition home or self-care (01) ==
LOC: PT 14:00
PROVIDERS: PCP Family Medicine; Referring Provider Orthopaedic Surgery Hand Surgery; Visit Provider Orthopaedic Surgery Hand Surgery
DX: M75.121 Complete rotator cuff tear or rupture of right shoulder, not specified as traumatic (principal)
CPT/HCPCS: 97110; 97140; 97161; 97530

== ENCOUNTER → 2025-07-19 | Outpatient (CLI) | payer MEDICARE, SELFPAY ==
[2025-07-19 13:13] LABS: PSA,Total- Diagnostic 2.41 ng/mL (0.00-4.00)
== END | disposition home or self-care (01) ==
LOC: MTLAB 09:52
PROVIDERS: PCP Family Medicine; Referring Provider Specialist; Visit Provider Specialist
DX: N40.0 Benign prostatic hyperplasia without lower urinary tract symptoms (principal)
CPT/HCPCS: 36415; 84153